=== PATIENT | female | born 1940 | race Caucasian/White ===

== ENCOUNTER 2025-06-01 09:48 | Emergency (ER) | payer MEDICARE, SELFPAY ==
--- OUTSIDE RECORDS SUMMARY | 2021-11-26 04:24 | XMS_ITS | Continuity of Care Document ---
Author Organization [facility] Address [address] [place] [address] Phone Care Team Providers Care Cat Breeder Name Role Phone Luis Jesus DO Unavailable Unavailable Allergies, Adverse Reactions, Alerts Substance Reaction Status Criticality heparin rx unk, taken off in hospital Active No Information Medications Medication Instructions Dosage Effective Dates (start - stop) Status Comments Levothyroxine Sodium 50 MCG Oral Tablet TAKE 1 TABLET BY MOUTH ONCE DAILY 30 MINUTES BEFORE FIRST MEAL OF THE DAY. DO NOT TAKE WITH OTHER MEDICATIONS. - Active Alendronate Sodium 35 MG Oral Tablet TAKE 1 TABLET BY MOUTH ONCE A WEEK IN THE MORNING AT LEAST 30 MINUTES BEFORE FIRST FOOD,BEVERAGE OR MEDICATION OF THE DAY - Active POT CHLORIDE [id number] Take 2 tablets by mouth twice daily - Active nitroglycerin 0.2 mg/hr transdermal 24 hour patch apply 1 patch by transdermal route every day remove at night for 10-12 hours 1.00 patch - Active Entresto 24 mg-26 mg tablet dose unknown, take 1 tablet by oral route 2 times every day - Active spironolactone 25 mg tablet take 1/2 tablet by oral route every day - Active metoprolol succinate ER 25 mg tablet,extended release 24 hr take 1 tablet by oral route every day 25 MG - Active atorvastatin 40 mg tablet TAKE 1 TABLET BY MOUTH ONE TIME A DAY FOR HIGH CHOLESTEROL - Active nitroglycerin 0.[address] 1 tablet by sublingual route at the 1st sign of attack; may repeat every 5 min until relief; if pain persists after 3 tablets in 15 min, prompt medical attention is recommended 0.4 MG - Active multivitamin tablet take 1 tablet by oral route every day with food - Active Colace 100 mg capsule take 1 Capsule by oral route 2 times every day 100 MG - Active COQ-10 (unknown strength) take 1 Tablet by Oral route every day Not Available - Active bumetanide 1 mg tablet take 2 tablet by oral route 2 times every day 2 MG - Active clopidogrel 75 mg tablet take 1 tablet by oral route every day 75 MG - Active aspirin 81 mg chewable tablet chew 1 tablet by oral route every day 81 MG - Active Procedures Procedure Date SUBSEQUENT HOSPITAL CARE SUBSEQUENT HOSPITAL CARE SUBSEQUENT HOSPITAL CARE INITIAL HOSPITAL CARE OFFICE/OUTPATIENT VISIT, EST OFFICE/OUTPATIENT VISIT, EST OFFICE/OUTPATIENT VISIT, EST OFFICE/OUTPATIENT VISIT, EST OFFICE/OUTPATIENT VISIT, EST OFFICE/OUTPATIENT VISIT, EST SUBSEQUENT HOSPITAL CARE SUBSEQUENT HOSPITAL CARE HOSPITAL DISCHARGE DAY INITIAL HOSPITAL CARE OFFICE/OUTPATIENT VISIT, EST PPPS, SUBSEQUENT VISIT OFFICE/OUTPATIENT VISIT, EST OFFICE/OUTPATIENT VISIT, EST INITIAL HOSPITAL CARE SUBSEQUENT HOSPITAL CARE HOSPITAL DISCHARGE DAY OFFICE/OUTPATIENT VISIT, EST PROLONGED SERVICE, OFFICE PROLONGED SERVICE, OFFICE INITIAL HOSPITAL CARE SUBSEQUENT HOSPITAL CARE SUBSEQUENT HOSPITAL CARE HOSPITAL DISCHARGE DAY SUBSEQUENT HOSPITAL CARE OFFICE/OUTPATIENT VISIT, EST OFFICE/OUTPATIENT VISIT, EST OFFICE/OUTPATIENT VISIT, EST OFFICE/OUTPATIENT VISIT, EST ADMINISTRATION INFLUENZA VACCINE 2017 FLU VACC PRSV FREE INC ANTIG PPPS, SUBSEQUENT VISIT OFFICE/OUTPATIENT VISIT, EST OFFICE/OUTPATIENT VISIT, EST OFFICE/OUTPATIENT VISIT, EST SUBSEQUENT HOSPITAL CARE HOSPITAL DISCHARGE DAY SUBSEQUENT HOSPITAL CARE SUBSEQUENT HOSPITAL CARE INITIAL HOSPITAL CARE OFFICE/OUTPATIENT VISIT, EST OFFICE/OUTPATIENT VISIT, EST OFFICE/OUTPATIENT VISIT, EST ROUTINE VENIPUNCTURE PPPS, SUBSEQUENT VISIT OFFICE/OUTPATIENT VISIT, EST EKG OFFICE/OUTPATIENT VISIT, EST ROUTINE VENIPUNCTURE OFFICE/OUTPATIENT VISIT, EST ROUTINE VENIPUNCTURE OFFICE/OUTPATIENT VISIT, EST OFFICE/OUTPATIENT VISIT, EST NURSING FAC DISCHARGE DAY NURSING FAC CARE, SUBSEQ NURSING FAC CARE, SUBSEQ ROUTINE VENIPUNCTURE OFFICE/OUTPATIENT VISIT, EST URINALYSIS, AUTO, W/O SCOPE PPPS, SUBSEQUENT VISIT OFFICE/OUTPATIENT VISIT, EST OFFICE/OUTPATIENT VISIT, EST ROUTINE VENIPUNCTURE Doc meds verified w/pt or re Sys BP > or = 140 Gibbons BP less 90 URINALYSIS, AUTO, W/O SCOPE OFFICE/OUTPATIENT VISIT, EST Doc meds verified w/pt or re Sys BP > or = 140 Gibbons BP less 90 OFFICE/OUTPATIENT VISIT, EST URINALYSIS NONAUTO W/O SCOPE OFFICE/OUTPATIENT VISIT, EST Flu imm no ord/admin doc wyatt OFFICE/OUTPATIENT VISIT, EST Med record copy per page URINALYSIS NONAUTO W/O SCOPE OFFICE/OUTPATIENT VISIT, EST PNEUMOCOCCAL VACCINE ADMINISTRATION PNEUMOCOCCAL VACCINE OFFICE/OUTPATIENT VISIT, EST Advance Directives Directive Yes / No Effective Date File Name No Information Encounters Encounter Description Practice Location Reason(s) For Visit Diagnoses Date Provider Providers Copied on Encounter [facility], [address] [place] [address] [address], [place], [place], [id number] , [place] tel:[phone] [facility] No Information 2 Ann Marie PINEDA. [address], [place], [place], [id number], [place]. tel:[phone] [facility], [address] [place] [address] [address], [place], [place], [address] , [place] tel: [phone] [facility] No Information 2 Van Kaba. [address], [place], [id number], [place]. tel:[phone] Referring Provider: Lluvia Araujo DO, [address] [place], [address]. tel:[phone] [facility], [address] [place] [address] [address], [place], [place], [address] , [place] tel:[phone] [facility] No Information 2 Anupam Licea. [address], [place], [id number], [place]. tel:[phone] Referring Provider: Anuja Love, [address] [place], [address]. tel:[phone] [facility], [address] [place] [address] [address], [place], [place], [address] , [place] tel:[phone] [facility] No Information 2 Milton Chavez. [address], [place], [id number], [place]. tel:[phone] Referring Provider: Kathy Rose, [address] [facility], [place], [address]. tel:[phone] [facility], [address] [place] [address] Road [address], [place], [place], [address] , [place] tel: [phone] [facility] No Information 2 Jesus DO E.. [address], [place], [place], [address], [place]. tel:[phone] OFFICE/OUTPA TIENT VISIT, [facility], [address] [place] [address] [address], [place], [place], [address] , [place] tel: [phone] [facility] Red eye (chief complaint) Subconjuncti marleni hemorrhage of right eye 2 Jesus DO E.. [address], [place], [place], [address], [place]. [phone] Referring Provider: Luis Gilmore, [address], [place], [address]. tel:[phone] [place] [address], [address] [place] [address] [address], [place], [place], [address] , [place] tel: [phone] [facility] No Information 1 Ann Marie ABURTO.. [address], [place], [place], [address], [place]. tel:[phone] [place] [address], [address] [place] [address] [address], [place], [place], [address] , [place] tel: [phone] [facility] No Information 1 Ann Marie ABURTO.. [address], [place], [place], [address], [place]. tel:[phone] OFFICE/OUTPA TIENT VISIT, [facility], [address] [place] [address] [address], [place], [place], [address] , [place] tel: [phone] [facility] No Information 1 Niki Rodriguez. [address], [place], [id number], [place]. tel:[phone] Referring Provider: Jennifer Prince, [facility] [address] [facility], [place], [address]. tel:[phone] OFFICE/OUTPA TIENT VISIT, [facility], [address] [place] [address] [address], [place], [place], [address] , [place] tel:[phone] [facility] 6 month follow up (chief complaint) Chronic obstructive pulmonary disease, unspecified COPD typeHyperlip idemia, unspecifiedC hronic systolic congestive heart failureOsteo penia of neck of left femurHypothy roidism, unspecified 1 Ann Marie PINEDA. [address] [facility], [address], [place], [place], [address], [place]. tel:[phone] Referring Provider: Luis Gilmore, [address] [facility] [address], [place], [address]. tel:[phone] OFFICE/OUTPA TIENT VISIT, [facility], [address] [place] [address] [address], [place], [place], [address] , [place] [phone] [facility] No Information 1 Niki Rodriguez. [address], [place], [address], [place]. tel:[phone] Referring Provider: Jennifer Prince, [address] [place], [address]. tel:[phone] OFFICE/OUTPA TIENT VISIT, [facility], [address] [place] [address] [address], [place], [place], [address] , [place] [phone] [facility] No Information 1 Niki Rodriguez. [address], [place], [id number], [place]. tel:[phone] Referring Provider: Jennifer Prince, [facility] [place], [address]. [phone] OFFICE/OUTPA TIENT VISIT, [facility], [address] [place] [address] [address], [place], [place], [address] , [place] tel:[phone] [facility] 6 months follow up (chief complaint) Osteopenia of neck of left femurHypothy roidism, unspecifiedI nsomnia, unspecifiedO steoarthriti s of right hip, unspecified osteoarthrit is typeChronic systolic congestive heart failure 1 Ann Marie PINEDA. [address], [place], [place], [address], [place]. [phone] Referring Provider: Luis Gilmore, [address], [place], [address]. tel:[phone] [facility], [address] [place] [address] [address], [place], [place], [address] , [place] tel:[phone] [facility] No Information 1 Van Kaba. [address], [place], [id number], [place]. tel:[phone] Referring Provider: Lluvia Araujo DO, [address] [facility], [place], [address]. [phone] [facility], [address] [place] [address] [address], [place], [place], [address] , [place] tel:[phone] [facility] No Information 1 Alphonse Lemus. [address], [place], [id number], [place]. tel:[phone] Referring Provider: Allan Cunha, [address] [place], [address]. tel:[phone] OFFICE/OUTPA TIENT VISIT, [facility], [address] [place] [address] [address], [place], [place], [address] , [place] tel:[phone] [facility] No Information 0 Niki Rodriguez. [address], [place], [id number], [place]. tel:[phone] Referring Provider: Jennifer Prince, [address] [facility], [place], [address]. tel:[phone] [facility], [address] [place] [address] B, [place], [address] , [place] tel:[phone] [facility] 6 months follow up (chief complaint)Ref ill Meds (chief complaint) Insomnia, unspecifiedH ypothyroidis m, unspecifiedC hronic systolic congestive heart failureChron ic obstructive pulmonary disease, unspecified COPD typeOsteoart hritis of right hip, unspecified osteoarthrit is typeHyperlip idemia, unspecifiedM edicare annual wellness visit, subsequentNi cotine dependence, cigarettes, uncomplicate d 0 Ann Marie FINNEGAN [address], [facility] A, [place], [place], [address], [place]. tel:[phone] Referring Provider: Luis Gilmore, [address] [facility] [address], [place], [address]. tel:[phone] [facility], [address] [place] [address] B, [place], [address] , [place] tel:[phone] [facility] No Information 0 Ann Marie FINNEGAN [address] [facility], [facility] A, [place], [place], [address], [place]. tel:[phone] [facility], [address] [place] [address] [address], [place], [place], [address] , [place] tel:[phone] [facility] No Information 0 Orlando Macias. [address], [place], [address], [place]. tel:[phone] OFFICE/OUTPA TIENT VISIT, EST [facility], [address] [place] [address] B, [place], [place], [address] , [place] tel:[phone] [facility] Insomnia (chief complaint)rig ht hip pain (chief complaint)Sys tolic Heart Failure (chief complaint) Insomnia, unspecifiedC hronic systolic heart failureOsteo arthritis of right hip, unspecified osteoarthrit is type 0 Ann Marie PINEDA. [address], [place], [place], [address], [place]. tel:[phone] Referring Provider: Luis Gilmore, [address], [place], [address]. tel:[phone] OFFICE/OUTPA TIENT VISIT, [facility], [address] [facility] [address], [place], [place], [address] , [place] tel:[phone] [facility] Follow Up of Hypothyroidis m (chief complaint)Hos pitalization (chief complaint)Fol low Up of Insomnia (chief complaint)Fol low Up of Hyperlipidemi a (chief complaint)Fol low Up of musculoskelet al pain (chief complaint) Osteoarthrit is of right hip, unspecified osteoarthrit is typeInsomnia , unspecifiedH yperlipidemi a, unspecified hyperlipidem ia typeChronic systolic congestive heart failureChron ic obstructive pulmonary disease, unspecified COPD typeScreenin g for breast cancer 9 Ann Marie PINEDA. [address], [place], [place], [address], [place]. tel:[phone] Referring Provider: Nicole Massey, [address] [place], [address]. tel:[phone] [facility], [address] [place] [address] [address], [place], [place], [address] , [place] tel:[phone] [facility] No Information 9 John Zamora. [address], [place], [id number], [place]. tel:[phone] Referring Provider: Sera Lopez, [address] [facility], [place], [address]. tel:[phone] [facility], [address] [place] [address] [address], [place], [place], [address] , [place] tel: [phone] [facility] No Information 9 Dominik Danielle. [address], [place], [id number], [place]. tel:[phone] Referring Provider: Lolis Lehman MD, [address] [place], [address]. tel:[phone] OFFICE/OUTPA TIENT VISIT, [facility], [address] [place] [address] [address], [place], [place], [address] , [place] tel: [phone] [facility] No Information 9 Niki Rodriguez. [address], [place], [address], [place]. [phone] Referring Provider: Jennifer Prince, [facility] [place], [address]. tel:[phone] [facility], [address] [place] [address] [address] , [place], [place], [address] , [place] tel: [phone] [facility] No Information 9 Dominik Danielle. [address], [place], [id number], [place]. tel:[phone] Referring Provider: Lolis Lehman MD, [facility] [place], [address]. tel:[phone] [facility], [address] [place] [address] [address] , [place], [place], [address] , [place] tel: [phone] [facility] No Information No Information SUBSEQUENT [facility], [address] [place] [address] B, [place], [place], [address] , [place] tel: [phone] [facility] No Information 9 Alphonse Lemus. [address] [place], [address], [place]. tel:[phone] Referring Provider: Allan Cunha, [address] [facility], [place], [address]. tel:[phone] OFFICE/OUTPA TIENT VISIT, [facility], [address] [place] [address] [address], [place], [place], [address] , [place] tel:[phone] [facility] musculoskelet al pain (chief complaint) History of recent fallAcute right hip pain 9 Ann Marie NOEL E.. [address] [facility], [address], [place], [place], [address], [place]. tel:[phone] Referring Provider: Nicole Massey, [address] [place], [address]. tel:[phone] OFFICE/OUTPA TIENT VISIT, [facility], [address] [place] [address] [address], [place], [place], [address] , [place] tel:[phone] [facility] Thyroid problems (chief complaint)Hyp erlipidemia (chief complaint)Ins omnia (chief complaint)Hyp ertension (chief complaint)Errol otine dependance (chief complaint) Hypothyroidi sm, unspecifiedN icotine dependence, cigarettes, uncomplicate dInsomnia, unspecifiedH yperlipidemi a, unspecified hyperlipidem ia typeIschemic heart disease 9 Ann Marie PINEDA. [address], [place], [place], [address], [place]. tel:[phone] Referring Provider: Luis Gilmore, [address], [place], [address]. tel:[phone] OFFICE/OUTPA TIENT VISIT, [facility], [address] [place] [address] [address], [place], [place], [address] , [place] tel:[phone] [facility] Establish Care (chief complaint)Thy roid problems (chief complaint)Hyp erlipidemia (chief complaint)Hyp ertension (chief complaint)Ins omnia (chief complaint) Hypothyroidi sm, unspecifiedH yperlipidemi a, unspecifiedI nsomnia, unspecifiedE ssential (primary) hypertension Atherosclero tic heart disease of [place] coronary artery without angina pectorisNico luke dependence, other tobacco product, uncomplicate d 9 Ann Marie PINEDA. [address], [place], [place], [address], [place]. tel:[phone] Referring Provider: Luis Gilmore, [address], [place], [address]. tel:[phone] OFFICE/OUTPA TIENT VISIT, [facility], [address] [place] [address] [address], [place], [place], [address] , [place] tel:[phone] [facility] chronic conditions (chief complaint) Essential (primary) hypertension Hyperlipidem ia, unspecifiedH ypothyroidis m, unspecifiedI nsomnia, unspecifiedN icotine dependence, other tobacco product, uncomplicate dAtheroscler otic heart disease of [place] coronary artery without angina pectoris 9 Shilpa Rivera. [address] [place] [address], [address]. tel:[phone] Referring Provider: Nicole Massey, [address] [place] [address], [address]. tel:[phone] [facility], [address] [place] [address] B, [place], [place], [address] , tel:[phone] [facility] medicare preventive (chief complaint)chr onic conditions (chief complaint)dec lines breast exam (chief complaint) Essential (primary) hypertension Other specified disorders of bone density and structure, unspecified siteInsomnia , unspecifiedE ncounter for general adult medical examination without abnormal findings 8 Shilpa Rivera. [address] [place] [address], [address]. tel:[phone] Referring Provider: Nicole Massey [address] [place] [address], [address]. tel:[phone] OFFICE/OUTPA TIENT VISIT, [facility], [address] [place] [address] [address], [place], [place], [address] , tel:[phone] [facility] chronic conditions (chief complaint) Essential (primary) hypertension Hyperlipidem ia, unspecified 8 Shilpa Rivera. [address] [place] [address], [address]. tel:[phone] Referring Provider: Nicole Massey, [address] [place] [address], [address]. tel:[phone] OFFICE/OUTPA TIENT VISIT, [facility], [address] [place] [address], [place], [place], [address] , tel:[phone] [facility] chronic conditions (chief complaint) Essential (primary) hypertension Acute systolic (congestive) heart failureNicot ine dependence, other tobacco product, uncomplicate dHyperlipide tiny, unspecified 8 Shilpa Rivera. [address] [place] [address], [address]. tel:[phone] Referring Provider: Nicole Massey, [address] [place] [address], [address]. tel:[phone] OFFICE/OUTPA TIENT VISIT, [facility], [address] [place] [address], [place], [place], [address] , [place] tel:[phone] [facility] Follow Up of hospitalizati on (chief complaint) Acute systolic (congestive) heart failureCOPD exacerbation 8 Shilpa RiveraVee [address] [place] [address], [address]. tel:[phone] Referring Provider: Nicole Massey, [address] [place] [address], [address]. tel:[phone] [facility], [address] [place] [address] B, [place], [place], [address] , [place] tel: [phone] [facility] No Information [address] [facility], [address] [place] [address] B, [place], [place], [address] , [place] tel:[phone] [facility] No Information [address] [facility], [address] [place] [address] B, [place], [place], [address] , [place] tel:[phone] [facility] No Information 8 No Information OFFICE/OUTPA TIENT VISIT, [employer] [facility], [address] [place] [address], [place], [place], [address] , tel:[phone] [facility] chronic conditions (chief complaint)pepe bocanegra (chief complaint) Essential (primary) hypertension Hypothyroidi sm, unspecifiedO ther specified peripheral vascular diseasesHype rlipidemia, unspecified 8 Shilpa Rivera. [address] [place] [address], [address]. tel:[phone] Referring Provider: Nicole Massey, [address] [place] [address], [address]. tel:[phone] OFFICE/OUTPA TIENT VISIT, [employer] [facility], [address] [place] [address], [place], [place], [address] , [phone] [facility] chronic conditions (chief complaint) Essential (primary) hypertension Acute systolic (congestive) heart failureNicot ine dependence, other tobacco product, uncomplicate dHypothyroid ism, unspecified 7 Shilpa Rivera. [address] [place] [address], [address]. tel:[phone] Referring Provider: Nicole Massey, [address] [place] [address], [address]. tel:[phone] OFFICE/OUTPA TIENT VISIT, [facility], [address] [place] [address], [place], [place], [address] , [place] tel:[phone] [facility] Discuss DEXA results (chief complaint) Other specified disorders of bone density and structure, unspecified siteNicotine dependence, cigarettes, uncomplicate d 7 Shilpa Rivera. [address] [place] [address], [address]. tel:[phone] Referring Provider: Nicole Massey, [address] [place] [address], [address]. tel:[phone] [facility], [address] [place] [address], [id number] , tel:[phone] [facility] medicare preventive (chief complaint)chr onic conditions (chief complaint)req uests breast exam today. (chief complaint) Essential (primary) hypertension AnemiaEncoun ter for general adult medical examination without abnormal findingsOthe r specified disorders of bone density and structure, unspecified siteUnspecif ied diastolic (congestive) heart failure 7 Shilpa Rivera. [address] [place] [address], [address]. tel:[phone] Referring Provider: Nicole Massey, [address] [place] [address], [address]. tel:[phone] OFFICE/OUTPA TIENT VISIT, [facility], [address] [place] [address], [id number] , tel:[phone] [facility] Cough (chief complaint)mem ory problems (chief complaint) Cough due to ANGIE inhibitorAdv erse effect of angiotensin- converting-e nzyme inhibitors, initial encounterCog nitive deficits 7 Shilpa De Los Santos [address] [place] [address], [address]. tel:[phone] Referring Provider: Nicole Massey, [address] [place] [address], [address]. tel:[phone] OFFICE/OUTPA TIENT VISIT, [employer] [facility] [employer], [address] [place] [address], [id number] , tel:[phone] [facility] Follow Up of Anxiety (chief complaint)sta ple (chief complaint)Fol low Up of CHF (chief complaint)dis cuss thyroid nodules per CT (chief complaint) Thyroid noduleCardia c arrhythmia, unspecifiedC erebrovascul ar accident (CVA) due to thrombosis of right middle cerebral arteryGAD (generalized anxiety disorder) 7 Shilpa De Los Santos [address] [place] [address], [address]. tel:[phone] Referring Provider: Nicole Massey [address] [place] [address], [address]. tel:[phone] OFFICE/OUTPA TIENT VISIT, [employer] [facility], [address] [place] [address] [address], [place], [place], [id number] , tel:[phone] [facility] Follow Up of CHF (chief complaint)2 mika left behind knee. (chief complaint)anx iety (chief complaint) Cerebrovascu lar accident (CVA) due to thrombosis of right middle cerebral arteryAcute systolic congestive heart failureEncou nter for staple removal Shilpa Rivera. [address] [place] [address], [address]. tel:[phone] Referring Provider: Nicole Massey, [address] [place] [address], [address]. tel:[phone] OFFICE/OUTPA TIENT VISIT, [employer] [facility], [address] [place] [address] [address], [place], [place], [id number] , [place] tel:[phone] [facility] Bloodshot eye (chief complaint) Eye hemorrhage, right No Information Referring Provider: Nicole Massey, [address] [place] [address], [address]. tel:[phone] OFFICE/OUTPA TIENT VISIT, [employer] [facility], [address] [place] [address] [address], [place], [place], [id number] , tel:[phone] [facility] Follow Up of hospital/SNF stay (chief complaint) Iron deficiency anemia due to chronic blood lossUrinary tract infection, site unspecifiedA cute systolic congestive heart failureCoron kiran artery disease involving [place] heart without angina pectoris, unspecified vessel or lesion typeRight-si ded carotid artery diseaseCereb rovascular accident (CVA) due to thrombosis of right middle cerebral arteryTobacc o dependence in remissionPle ural effusion due to CHF (congestive heart failure) 6 Shilpa Rivera. [address] [place] [address], [address]. tel:[phone] Referring Provider: Nicole Massey [address] [place] [address], [address]. tel:[phone] NURSING FAC DISCHARGE [facility], [address] [place] [address] [address], [place], [place], [id number] , [place] tel: [phone] [facility] Skilled No Information 6 Rishabh Brock. [address], [place], [place], [id number], [place]. tel:[phone] Referring Provider: Vinod Love, [facility] [address] [address], [place], [address]. tel:[phone] NURSING FAC CARE, [facility], [address] [place] [address] B, [place], [place], [id number] , tel: [phone] [facility] Sk[facility] No Information 6 Rishabh Brock. [facility], [place], [place], [id number], [place]. tel:[phone] Referring Provider: Vinod Love, [facility], [place], [address]. tel:[phone] NURSING FAC CARE, [facility], [address] [place] [address] [address], [place], [place], [id number] , [place] tel: [phone] [facility] No Information 6 Rishabh Brock. [facility], [place], [place], [id number], [place]. tel:[phone] Referring Provider: Vinod Love, [facility], [place], [address]. tel:[phone] OFFICE/OUTPA TIENT VISIT, 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 [address] [place] [address], [address]. tel:[phone] Referring Provider: Nicole Massey, [address] [place] [address], [address]. tel:[phone] [facility], [address] [place] [address], [id number] , tel:[phone] [facility] Medicare preventive (chief complaint) Encntr for general adult medical exam w/o abnormal findingsOthe r hyperlipidem iaEssential (primary) hypertension Hypothyroidi sm, unspecified 6 Shilpa Nicole. [address] [place] [address], [address]. tel:[phone] Referring Provider: Nicole Massey, [address] [place] [address], [address]. tel:[phone] OFFICE/OUTPA TIENT VISIT, [facility] [employer] [facility], [address] [place] [address], [id number] , tel:[phone] [facility] chronic conditions (chief complaint) Essential (primary) hypertension Elevated hematocritDr ug-induced hyperkalemia 5 Shilpa Nicole. [address] [place] [address], [address]. tel:[phone] Referring Provider: Nicole Massey, [address] [place] [address], [address]. tel:[phone] OFFICE/OUTPA TIENT VISIT, [employer] [facility], [address] [place] [address], [id number] , tel:[phone] [facility] chronic conditions (chief complaint)Laureano h (chief complaint) Unspecified essential hypertension Tobacco AbuseHypokal emiaUnspecif ied hypothyroidi smHypertensi on, BenignYeast dermatitis - 5 Shilpa Nicole. [address] [place] [address], [address]. tel:[phone] Referring Provider: Nicole Massey, [address] [place] [address], [address]. tel:[phone] OFFICE/OUTPA TIENT VISIT, [employer] [facility], [address] [place] [address], [place], [place], [id number] , [place] tel:[phone] [facility] chronic conditions (chief complaint)Pre ventive exam (chief complaint) Unspecified hypothyroidi smBenign essential hypertension Other and unspecified hyperlipidem iaRoutine Medical Exam 4 No Information OFFICE/OUTPA TIENT VISIT, [facility] [employer] [facility], [address] [place] [address], [place], [place], [id number] , [place] [phone] [facility] chronic conditions (chief complaint) Hypertension , BenignOther and unspecified hyperlipidem iaPolycythem ia secondary to smokingCAD, UnspecifiedH ypokalemia Dec- 4 Shilpa Rivera. [address] [place] [address], [address]. tel:[phone] Referring Provider: Nicole Massey, [address] [place] [address], [address]. tel:[phone] [employer] [facility], [address] [place] [address], [place], [place], [id number] , [phone] [facility] Hypertension , Benign Dec-0 4 Massey Nicole. [address] [place] [address], [address]. tel:[phone] OFFICE/OUTPA TIENT VISIT, [facility] [employer] [facility], [address] [place] [address] [address], [place], [place], [id number] , [place] tel:[phone] [facility] chronic conditions (chief complaint)pre ventive exam (chief complaint) Hypertension , BenignPeriph eral vascular disease, unspecifiedO ther and unspecified hyperlipidem iaDisorder of bone and cartilage, unspecifiedH ypothyroidis mRoutine Medical ExamPolycyth emia secondary to smokingTobac co Abuse 3 Shilpa Rivera. [facility] [place], [address]. tel:[phone] Referring Provider: Nicole Massey, [address] [place] [address], [address]. tel:[phone] OFFICE/OUTPA TIENT VISIT, [employer] [facility], [address] [place] [address], [place], [place], [id number] , tel:[phone] [facility] hypertension (follow up) (chief complaint) Hypertension , BenignHypoth yroidismOthe r and unspecified hyperlipidem iaPeripheral vascular disease, unspecified 3 Shilpa Rivera. [address] [place] [address], [address]. tel:[phone] Referring Provider: Nicole Massey, [address] [place] [address], [address]. tel:[phone] [facility], [address] [place] [address], [place], [place], [id number] , [place] tel:[phone] [facility] No Information 3 Shilpa Rivera. [address] [place] [address], [address]. tel:[phone] Referring Provider: Nicole Massey, [address] [place] [address], [address]. tel:[phone] OFFICE/OUTPA TIENT VISIT, [facility] [employer] [facility], [address] [place] [address], [id number] , [place] tel:[phone] [facility] preventive exam (chief complaint) Hypertension , BenignOther and unspecified hyperlipidem iaDisorder of bone and cartilage, unspecifiedH eart ThrombusPneu monia Vaccine 2 Shilpa Rivera. [address] [place] [address], [address]. tel:[phone] Referring Provider: Nicole Massey, [address] [place] [address], [address]. tel:[phone] [employer] [facility], [address] [place] [address] [place], [id number] , [place] tel:[phone] [facility] Hypertension , BenignOther and unspecified hyperlipidem iaCAD, UnspecifiedH eart ThrombusDiso rder of bone and cartilage, unspecifiedP eripheral vascular disease, unspecified 2 Shilpa Rivera. [address] [place] [address], [address]. tel:[phone] OFFICE/OUTPA TIENT VISIT, [facility], [address] [facility] [address], [place], [place], [id number] , [place] tel:[phone] [facility] No Information 2 Shilpa Rivera. [address] [place], [address]. tel:[phone] Referring Provider: Nicole Massey, [address] [place] [address], [address]. tel:[phone] Family History Family Member Type Diagnosis Age At Onset Father Problem (finding) Father Problem (finding) Cancer (Cause Of ) Immunizations Vaccine Date Status Comments Influenza, high dose, injectable, split virus, preservative free, Fluzone High-Dose administered Source: New Immuniz ation Record Pneumo (2 yrs or older)(PPV) administered Source: New Immunization Record Payers Payer name Insurance type Covered constitution party ID Authoriza tion(s) Humana Choice And Gold Choice 16 [id number] [employer] 16 [id number] Social History Type Description Quantity Date Captured Comments Alcohol Use Details Unknown Caffeine Use Details Unknown Tobacco Use Status Smoking Status No Information Sex Female Chief Complaint And Reason For Visit No Information Reason For Referral Reason For Referral No Information Plan Of Treatment Date Type Action Status Goal Echocardiogram. Due on due Goal Pap liquid based for cytology. Due on due Goal Digital Mammogra m Screening. Due on due Goal Medroxyprogester one inj. Due on due Goal Zoster vaccine (1st). Due on due Goal DEXA Scan. Due on due Goal Td vaccine. Due on due Goal LVEF assessment. Due on due Goal N-terminal pro-B -type natriuretic peptide. Due on due Goal Spirometry. Due on due Goal Fasting glucose. Due on due Goal VR12 - screening tool. Due on due Goal AIR BRAKES INSPECTOR exam. Due on due Goal Cognitive assessment. Due on due Goal URINALYSIS NONAU TO W/O SCOPE. Due on due Goal Pneumococcal vaccine. Due on due Goal Unhealthy drug u se screening. Due on due Goal Depression screening. Due on due Goal BMP. Due on due Goal Zoster vaccine. Due on due Goal Cytology report of Cervical and vaginal smear or scraping Cyto stain. Due on due Goal H&P. Due on due Goal VR12 - screening tool. Due on due Goal Echocardiogram. Due on due Goal Cytology report of Cervical and vaginal smear or scraping Cyto stain. Due on due Goal Td vaccine. Due on due Goal H&P. Due on due Goal Pneumococcal vaccine. Due on due Goal Cognitive assessment. Due on due Goal DEXA Scan. Due on 3 due Goal Digital Mammogra m Screening. Due on due Goal Medroxyprogester one inj. Due on due Goal AIR BRAKES INSPECTOR exam. Due on due Goal Zoster vaccine (). Due on due Goal URINALYSIS NONAU TO W/O SCOPE. Due on due Goal Pap liquid based for cytology. Due on due Goal BMP. Due on due Goal Depression screening. Due on due Goal Spirometry. Due on due Goal LVEF assessment. Due on due Goal N-terminal pro-B -type natriuretic peptide. Due on due Goal Fasting glucose. Due on due Goal Lipid Panel. Due on 022 due Goal Echocardiogram. Due on due Goal BMP. Due on due Goal DEXA Scan. Due on 3 due Goal Medroxyprogester one inj. Due on due Goal AIR BRAKES INSPECTOR exam. Due on due Goal Pap liquid based for cytology. Due on due Goal Cytology report of Cervical and vaginal smear or scraping Cyto stain. Due on due Goal Zoster vaccine (1st). Due on due Goal Pneumococcal vaccine. Due on due Goal Digital Mammogra m Screening. Due on due Goal H&P. Due on due Goal Td vaccine. Due on due Goal Cognitive assessment. Due on due Goal URINALYSIS NONAU TO W/O SCOPE. Due on due Goal Depression screening. Due on due Goal LVEF assessment. Due on due Goal N-terminal pro-B -type natriuretic peptide. Due on due Goal Spirometry. Due on due Goal Fasting glucose. Due on due Goal VR12 - screening tool. Due on due Goal Lipid Panel. Due on due Goal Echocardiogram. Due on due Goal Fasting glucose. Due on due Goal Spirometry. Due on due Goal LVEF assessment. Due on due Goal Pneumococcal vaccine. Due on due Goal Cytology report of Cervical and vaginal smear or scraping Cyto stain. Due on due Goal URINALYSIS NONAU TO W/O SCOPE. Due on due Goal Digital Mammogra m Screening. Due on due Goal H&P. Due on due Goal VR12 - screening tool. Due on due Goal N-terminal pro-B -type natriuretic peptide. Due on due Goal Medroxyprogester one inj. Due on due Goal Cognitive assessment. Due on due Goal Zoster vaccine (1st). Due on due Goal Pap liquid based for cytology. Due on due Goal Td vaccine. Due on due Goal AIR BRAKES INSPECTOR exam. Due on due Goal BMP. Due on due Goal Depression screening. Due on due Goal Lipid Panel. Due on due Goal Fasting glucose. Due on due Goal Spirometry. Due on due Goal VR12 - screening tool. Due on due Goal N-terminal pro-B -type natriuretic peptide. Due on due Goal LVEF assessment. Due on due Goal Echocardiogram. Due on due Goal Zoster vaccine. Due on due Goal H&P. Due on due Goal Pap liquid based for cytology. Due on due Goal Medroxyprogester one inj. Due on due Goal URINALYSIS NONAU TO W/O SCOPE. Due on due Goal Depression screening. Due on due Goal Lipid Panel. Due on due Goal Digital Mammogra m Screening. Due on due Goal AIR BRAKES INSPECTOR exam. Due on due Goal Cytology report of Cervical and vaginal smear or scraping Cyto stain. Due on due Goal Pneumococcal vaccine. Due on due Goal Td vaccine. Due on due Goal Zoster vaccine (1st). Due on due Goal Cognitive assessment. Due on due Goal DEXA Scan. Due on 9 due Goal BMP. Due on due Goal Td vaccine. Due on due Goal Cytology report of Cervical and vaginal smear or scraping Cyto stain. Due on due Goal Zoster vaccine. Due on due Goal H&P. Due on due Goal DEXA Scan. Due on 9 due Goal Medroxyprogester one inj. Due on due Goal Digital Mammogra m Screening. Due on due Goal URINALYSIS NONAU TO W/O SCOPE. Due on due Goal Depression screening. Due on due Goal BMP. Due on due Goal Lipid Panel. Due on due Goal Cognitive assessment. Due on due Goal AIR BRAKES INSPECTOR exam. Due on due Goal Pap liquid based for cytology. Due on due Goal Echocardiogram. Due on due Goal Spirometry. Due on due Goal Fasting glucose. Due on due Goal LVEF assessment. Due on due Goal VR12 - screening tool. Due on due Goal N-terminal pro-B -type natriuretic peptide. Due on due Goal Pneumococcal vaccine. Due on due Goal Zoster vaccine (). Due on due Goal VR12 - screening tool. Due on due Goal LVEF assessment. Due on due Goal N-terminal pro-B -type natriuretic peptide. Due on due Goal Echocardiogram. Due on due Goal Cytology report of Cervical and vaginal smear or scraping Cyto stain. Due on due Goal Pneumococcal vaccine. Due on due Goal Zoster vaccine. Due on due Goal Fasting glucose. Due on due Goal Spirometry. Due on due Goal Digital Mammogra m Screening. Due on due Goal URINALYSIS NONAU TO W/O SCOPE. Due on due Goal DEXA Scan. Due on due Goal Pap liquid based for cytology. Due on due Goal H&P. Due on due Goal Medroxyprogester one inj. Due on due Goal Zoster vaccine (1st). Due on due Goal AIR BRAKES INSPECTOR exam. Due on due Goal Cognitive assessment. Due on due Goal Td vaccine. Due on due Goal BMP. Due on due Goal Depression screening. Due on due Goal Lipid Panel. Due on due Goal Lipid Panel. Due on due Goal Depression screening. Due on due Goal BMP. Due on due Goal Zoster vaccine (1st). Due on due Goal Zoster vaccine. Due on due Goal Cognitive assessment. Due on due Goal Td vaccine. Due on 19 due Goal H&P. Due on due Goal Pap liquid based for cytology. Due on due Goal DEXA Scan. Due on due Goal URINALYSIS NONAU TO W/O SCOPE. Due on due Goal AIR BRAKES INSPECTOR exam. Due on due Goal Digital Mammogra m Screening. Due on due Goal SCREENINGMAMMOGR APHYDIGITAL. Due on due Goal Cytology report of Cervical and vaginal smear or scraping Cyto stain. Due on due Goal Medroxyprogester one inj. Due on due Goal Pneumococcal vaccine. Due on due Goal Fasting glucose. Due on due Goal Spirometry. Due on 19 due Goal VR12 - screening tool. Due on due Goal N-terminal pro-B -type natriuretic peptide. Due on due Goal LVEF assessment. Due on due Goal Echocardiogram. Due on due Goal VR12 - screening tool. Due on due Goal Echocardiogram. Due on due Goal SCREENINGMAMMOGR APHYDIGITAL. Due on due Goal Digital Mammogra m Screening. Due on due Goal DEXA Scan. Due on 9 due Goal Pneumococcal vaccine. Due on due Goal Spirometry. Due on 19 due Goal Fasting glucose. Due on due Goal LVEF assessment. Due on due Goal Pap liquid based for cytology. Due on due Goal Cytology report of Cervical and vaginal smear or scraping Cyto stain. Due on due Goal URINALYSIS NONAU TO W/O SCOPE. Due on due Goal Cognitive assessment. Due on due Goal BMP. Due on due Goal Depression screening. Due on due Goal ECG. Due on due Goal Lipid Panel. Due on due Goal H&P. Due on due Goal Zoster vaccine. Due on due Goal AIR BRAKES INSPECTOR exam. Due on due Goal Td vaccine. Due on 19 due Goal Medroxyprogester one inj. Due on due Goal Pneumococcal vaccine. Due on due Goal Lipid Panel. Due on due Goal Zoster vaccine. Due on due Goal Td vaccine. Due on 19 due Goal Pap liquid based for cytology. Due on due Goal Cytology report of Cervical and vaginal smear or scraping Cyto stain. Due on due Goal URINALYSIS NONAU TO W/O SCOPE. Due on due Goal Medroxyprogester one inj. Due on due Goal Cognitive assessment. Due on due Goal BMP. Due on due Goal Fasting glucose. Due on due Goal Spirometry. Due on 19 due Goal LVEF assessment. Due on due Goal VR12 - screening tool. Due on due Goal Echocardiogram. Due on due Goal Digital Mammogra m Screening. Due on due Goal SCREENINGMAMMOGR APHYDIGITAL. Due on due Goal DEXA Scan. Due on 9 due Goal H&P. Due on due Goal AIR BRAKES INSPECTOR exam. Due on due Goal Depression screening. Due on due Goal ECG. Due on due Goal Cognitive assessment. Due on due Goal Medroxyprogester one inj. Due on due Goal URINALYSIS NONAU TO W/O SCOPE. Due on due Goal Cytology report of Cervical and vaginal smear or scraping Cyto stain. Due on due Goal Pap liquid based for cytology. Due on due Goal Td vaccine. Due on 19 due Goal Zoster vaccine. Due on due Goal Pneumococcal vaccine. Due on due Goal DEXA Scan. Due on 9 due Goal SCREENINGMAMMOGR APHYDIGITAL. Due on due Goal Digital Mammogra m Screening. Due on due Goal AIR BRAKES INSPECTOR exam. Due on due Goal Fasting glucose. Due on due Goal Spirometry. Due on 19 due Goal LVEF assessment. Due on due Goal VR12 - screening tool. Due on due Goal Echocardiogram. Due on due Goal H&P. Due on due Goal Depression screening. Due on due Goal BMP. Due on due Goal ECG. Due on due Goal Lipid Panel. Due on 020 due Goal Medroxyprogester one inj. Due on due Goal Depression screening. Due on due Goal BMP. Due on due Goal ECG. Due on due Goal Lipid Panel. Due on 019 due Goal URINALYSIS NONAU TO W/O SCOPE. Due on due Goal Pap liquid based for cytology. Due on due Goal Td vaccine. Due on 18 due Goal Fasting glucose. Due on due Goal Spirometry. Due on 18 due Goal LVEF assessment. Due on due Goal VR12 - screening tool. Due on due Goal Echocardiogram. Due on due Goal Pneumococcal vaccine. Due on due Goal Cytology report of Cervical and vaginal smear or scraping Cyto stain. Due on due Goal Cognitive assessment. Due on due Goal Zoster vaccine. Due on due Goal H&P. Due on due Goal AIR BRAKES INSPECTOR exam. Due on due Goal Digital Mammogra m Screening. Due on due Goal SCREENINGMAMMOGR APHYDIGITAL. Due on due Goal DEXA Scan. Due on 9 due Goal Cognitive assessment. Due on due Goal Depression screening. Due on due Goal BMP. Due on due Goal ECG. Due on due Goal Lipid Panel. Due on 019 due Goal AIR BRAKES INSPECTOR exam. Due on due Goal Fasting glucose. Due on due Goal Spirometry. Due on 18 due Goal LVEF assessment. Due on due Goal VR12 - screening tool. Due on due Goal Echocardiogram. Due on due Goal Cytology report of Cervical and vaginal smear or scraping Cyto stain. Due on due Goal H&P. Due on due Goal Digital Mammogra m Screening. Due on due Goal DEXA Scan. Due on 9 due Goal Medroxyprogester one inj. Due on due Goal Pap liquid based for cytology. Due on due Goal URINALYSIS NONAU TO W/O SCOPE. Due on due Goal SCREENINGMAMMOGR APHYDIGITAL. Due on due Goal Zoster vaccine. Due on due Goal Pneumococcal vaccine. Due on due Goal Td vaccine. Due on 18 due Goal Digital Mammogra m Screening. Due on due Goal Pap liquid based for cytology. Due on due Goal AIR BRAKES INSPECTOR exam. Due on due Goal SCREENINGMAMMOGR APHYDIGITAL. Due on due Goal Pneumococcal vaccine. Due on due Goal URINALYSIS NONAU TO W/O SCOPE. Due on due Goal Cognitive assessment. Due on due Goal Td vaccine. Due on 18 due Goal Zoster vaccine. Due on due Goal BMP. Due on due Goal Depression screening. Due on due Goal ECG. Due on due Goal Lipid Panel. Due on 019 due Goal Cytology report of Cervical and vaginal smear or scraping Cyto stain. Due on due Goal Fasting glucose. Due on due Goal Spirometry. Due on 18 due Goal LVEF assessment. Due on due Goal VR12 - screening tool. Due on due Goal Echocardiogram. Due on due Goal H&P. Due on due Goal DEXA Scan. Due on 9 due Goal Medroxyprogester one inj. Due on due Goal Spirometry. Due on 18 due Goal Digital Mammogra m Screening. Due on due Goal Cytology report of Cervical and vaginal smear or scraping Cyto stain. Due on due Goal Pneumococcal vaccine. Due on due Goal Zoster vaccine. Due on due Goal SCREENINGMAMMOGR APHYDIGITAL. Due on due Goal URINALYSIS NONAU TO W/O SCOPE. Due on due Goal Cognitive assessment. Due on due Goal BMP. Due on due Goal Depression screening. Due on due Goal ECG. Due on due Goal Lipid Panel. Due on 019 due Goal VR12 - screening tool. Due on due Goal Echocardiogram. Due on due Goal Pap liquid based for cytology. Due on due Goal AIR BRAKES INSPECTOR exam. Due on due Goal Fasting glucose. Due on due Goal H&P. Due on due Goal LVEF assessment. Due on due Goal Medroxyprogester one inj. Due on due Goal Td vaccine. Due on 18 due Goal DEXA Scan. Due on 9 due Goal Medroxyprogester one inj. Due on due Goal Digital Mammogra m Screening. Due on due Goal Pneumococcal vaccine. Due on due Goal SCREENINGMAMMOGR APHYDIGITAL. Due on due Goal Cognitive assessment. Due on due Goal URINALYSIS NONAU TO W/O SCOPE. Due on due Goal Zoster vaccine. Due on due Goal BMP. Due on due Goal Echocardiogram. Due on due Goal Fasting glucose. Due on due Goal VR12 - screening tool. Due on due Goal LVEF assessment. Due on due Goal H&P. Due on due Goal AIR BRAKES INSPECTOR exam. Due on due Goal Td vaccine. Due on 18 due Goal Pap liquid based for cytology. Due on due Goal Cytology report of Cervical and vaginal smear or scraping Cyto stain. Due on due Goal DEXA Scan. Due on 9 due Goal Depression screening. Due on due Goal ECG. Due on due Goal Lipid Panel. Due on 018 due Goal Zoster vaccine. Due on due Goal Depression screening. Due on due Goal BMP. Due on due Goal ECG. Due on due Goal Lipid Panel. Due on 018 due Goal Td vaccine. Due on 17 due Goal H&P. Due on due Goal Fasting glucose. Due on due Goal Echocardiogram. Due on due Goal URINALYSIS NONAU TO W/O SCOPE. Due on due Goal LVEF assessment. Due on due Goal VR12 - screening tool. Due on due Goal Cognitive assessment. Due on due Goal Pap liquid based for cytology. Due on due Goal SCREENINGMAMMOGR APHYDIGITAL. Due on due Goal AIR BRAKES INSPECTOR exam. Due on due Goal Digital Mammogra m Screening. Due on due Goal Pneumococcal vaccine. Due on due Goal Cytology report of Cervical and vaginal smear or scraping Cyto stain. Due on due Goal DEXA Scan. Due on 9 due Goal Medroxyprogester one inj. Due on due Goal Td vaccine. Due on 17 due Goal Medroxyprogester one inj. Due on due Goal Zoster vaccine. Due on due Goal Pneumococcal Vac cine #2. Due on due Goal Cognitive assessment. Due on due Goal Cytology report of Cervical and vaginal smear or scraping Cyto stain. Due on due Goal Depression screening. Due on due Goal Fasting glucose. Due on due Goal LVEF assessment. Due on due Goal VR12 - screening tool. Due on due Goal Echocardiogram. Due on due Goal URINALYSIS NONAU TO W/O SCOPE. Due on due Goal Pap liquid based for cytology. Due on due Goal AIR BRAKES INSPECTOR exam. Due on due Goal Depression screening. Due on due Goal Fasting glucose. Due on due Goal Pap liquid based for cytology. Due on due Goal VR12 - screening tool. Due on due Goal LVEF assessment. Due on due Goal Echocardiogram. Due on due Goal URINALYSIS NONAU TO W/O SCOPE. Due on due Goal Td vaccine. Due on 17 due Goal Zoster vaccine. Due on due Goal Medroxyprogester one inj. Due on due Goal Cytology report of Cervical and vaginal smear or scraping Cyto stain. Due on due Goal Pneumococcal Vac cine #2. Due on due Goal AIR BRAKES INSPECTOR exam. Due on due Goal Cognitive assessment. Due on due Goal Tobacco cessation counseling completed Goal Pneumococcal Vac cine #2. Due on due Goal VR12 - screening tool. Due on due Goal LVEF assessment. Due on due Goal Echocardiogram. Due on due Goal Mammogram. Due on 6 due Goal Td vaccine. Due on 17 due Goal H&P. Due on due Goal DEXA Scan. Due on 6 due Goal Fasting glucose. Due on due Goal Depression screening. Due on due Goal Cytology report of Cervical and vaginal smear or scraping Cyto stain. Due on due Goal URINALYSIS NONAU TO W/O SCOPE. Due on due Goal Medroxyprogester one inj. Due on due Goal AIR BRAKES INSPECTOR exam. Due on due Goal Cognitive assessment. Due on due Goal Zoster vaccine. Due on due Goal Pap liquid based for cytology. Due on due Goal Fasting glucose. Due on due Goal DEXA Scan. Due on due Goal LVEF assessment. Due on due Goal VR12 - screening tool. Due on due Goal Echocardiogram. Due on due Goal Medroxyprogester one inj. Due on due Goal AIR BRAKES INSPECTOR exam. Due on due Goal Zoster vaccine. Due on due Goal Td vaccine. Due on 17 due Goal Pap liquid based for cytology. Due on due Goal URINALYSIS NONAU TO W/O SCOPE. Due on due Goal Cognitive assessment. Due on due Goal Pneumococcal Vac cine #2. Due on due Goal Mammogram. Due on due Goal Depression screening. Due on due Goal Pap liquid based for cytology. Due on due Goal Pneumococcal Vac cine #2. Due on due Goal Fasting glucose. Due on due Goal Zoster vaccine. Due on due Goal LVEF assessment. Due on due Goal VR12 - screening tool. Due on due Goal Echocardiogram. Due on due Goal Td vaccine. Due on due Goal Cognitive assessment. Due on due Goal Depression screening. Due on due Goal ECG. Due on due Goal DEXA Scan. Due on due Goal Medroxyprogester one inj. Due on due Goal Mammogram. Due on due Goal URINALYSIS NONAU TO W/O SCOPE. Due on due Goal AIR BRAKES INSPECTOR exam. Due on due Goal Pneumococcal Vac cine #2. Due on due Goal Cognitive assessment. Due on due Goal Mammogram. Due on due Goal Td vaccine. Due on due Goal Pap liquid based for cytology. Due on due Goal AIR BRAKES INSPECTOR exam. Due on due Goal Zoster vaccine. Due on due Goal URINALYSIS NONAU TO W/O SCOPE. Due on due Goal DEXA Scan. Due on due Goal Depression screening. Due on due Goal ECG. Due on due Goal Fasting glucose. Due on due Goal VR12 - screening tool. Due on due Goal LVEF assessment. Due on due Goal Echocardiogram. Due on due Goal Medroxyprogester one inj. Due on due Goal LVEF assessment. Due on due Goal VR12 - screening tool. Due on due Goal Echocardiogram. Due on due Goal AIR BRAKES INSPECTOR exam. Due on due Goal Fasting glucose. Due on due Goal URINALYSIS NONAU TO W/O SCOPE. Due on due Goal Depression screening. Due on due Goal Mammogram. Due on due Goal Pap liquid based for cytology. Due on due Goal Cognitive assessment. Due on due Goal Zoster vaccine. Due on due Goal DEXA Scan. Due on 6 due Goal Pneumococcal Vac cine #2. Due on due Goal Medroxyprogester one inj. Due on due Goal Td vaccine. Due on 16 due Goal ECG. Due on due Goal Cognitive assessment. Due on due Goal Zoster vaccine. Due on due Goal Depression screening. Due on due Goal ECG. Due on due Goal Fasting glucose. Due on due Goal Echocardiogram. Due on due Goal URINALYSIS NONAU TO W/O SCOPE. Due on due Goal Medroxyprogester one inj. Due on due Goal Td vaccine. Due on 16 due Goal AIR BRAKES INSPECTOR exam. Due on due Goal Pneumococcal Vac cine #2. Due on due Goal Pap liquid based for cytology. Due on due Goal Zoster vaccine. Due on due Goal Medroxyprogester one inj. Due on due Goal OARRS. Due on du e Goal ECG. Due on due Goal Pneumococcal Vac cine #2. Due on due Goal Pap liquid based for cytology. Due on due Goal AIR BRAKES INSPECTOR exam. Due on due Goal Depression screening. Due on due Goal URINALYSIS NONAU TO W/O SCOPE. Due on due Goal Td vaccine. Due on 16 due Goal Cognitive assessment. Due on due Goal Cognitive assessment. Due on due Goal Pneumococcal Vac cine #2. Due on due Goal ECG. Due on due Goal URINALYSIS NONAU TO W/O SCOPE. Due on due Goal Depression screening. Due on due Goal Td vaccine. Due on 15 due Goal OARRS. Due on du e Goal Medroxyprogester one inj. Due on due Goal AIR BRAKES INSPECTOR exam. Due on due Goal Zoster vaccine. Due on due Goal OARRS. Due on du e Goal Td vaccine. Due on 15 due Goal Medroxyprogester one inj. Due on due Goal THER/PROPH/DIAG INJ, SC/IM. Due on due Goal Pneumococcal Vac cine #2. Due on due Goal Cognitive assessment. Due on due Goal Influenza vaccine. Due on Ap due Goal Depression screening. Due on due Goal URINALYSIS NONAU TO W/O SCOPE. Due on due Goal AIR BRAKES INSPECTOR/Breast exam. Due on due Goal Eye exam. Due on due Goal AIR BRAKES INSPECTOR exam. Due on due Goal Zoster vaccine. Due on due Goal INSERT DRUG IMPL ANT DEVICE. Due on due Goal Zoster vaccine. Due on due Goal INSERT DRUG IMPL ANT DEVICE. Due on due Goal Td vaccine. Due on 14 due Goal AIR BRAKES INSPECTOR/Breast exam. Due on due Goal Depression screening. Due on due Goal THER/PROPH/DIAG INJ, SC/IM. Due on due Goal OARRS. Due on du e Goal Pneumococcal Vac cine #2. Due on due Goal Influenza vaccine. Due on Oc due Goal AIR BRAKES INSPECTOR exam. Due on due Goal Cognitive assessment. Due on due Goal EKG. Due on due Goal Medroxyprogester one inj. Due on due Goal Eye exam. Due on due Goal EKG. Due on due Goal PAP. Due on due Goal Td vaccine. Due on 14 due Goal FOBT. Due on due Goal Colonoscopy. Due on 014 due Goal AIR BRAKES INSPECTOR exam. Due on due Goal Pneumococcal Vac cine #2. Due on due Goal Influenza vaccine. Due on due Goal Urinalysis . Due on 014 due Goal Colonoscopy. Due on due Goal Pneumococcal Vac cine #2. Due on due Goal EKG. Due on due Goal AIR BRAKES INSPECTOR exam. Due on due Goal Urinalysis . Due on due Goal Diabetes screening due Goal Influenza vaccine. Due on due Goal FOBT. Due on due Goal PAP. Due on due Goal Td vaccine. Due on 14 due Future Order: Lab Order Free T4 ([id number]), Ordered on: Ordered Future Order: Lab Order TSH ([id number]), Or dered on: Ordered Future Order: Radiol ogy Order MA SCREENINGMAMMOGRAPHYDIGITAL ([id number]), Ordered on: Ordered Future Order: Radiol ogy Order XR Hip Complete Right ([id number]), Ordered on: Ordered Future Order: Lab Order CBC w/ A uto Diff ([id number]), Ordered on: Ordered Future Order: Lab Order CMP ([id number]), Or dered on: Ordered Future Order: Lab Order Lipid Pr ofile ([id number]), Ordered on: Ordered Future Order: Lab Order TSH ([id number]), Or dered on: Ordered Future Order: Lab Order CBC w/ A uto Diff ([id number]), Ordered on: Ordered Future Order: Lab Order CMP ([id number]), Or dered on: Ordered Future Order: Lab Order Lipid Pr ofile ([id number]), Ordered on: Ordered Future Order: Lab Order CBC w/ A uto Diff ([id number]), Ordered on: Ordered Future Order: Lab Order CMP ([id number]), Or dered on: Ordered Future Order: Lab Order Lipid Pr ofile ([id number]), Ordered on: Ordered Future Order: Lab Order TSH ([id number]), Or dered on: Ordered Future Order: Lab Order BMP ([id number]), Or dered on: Ordered Future Order: Lab Order CBC ([id number]), O rdered on: Ordered Future Order: Radiol ogy Order MA Digital Mammogram Screening ([id number]), Ordered on: Ordered Future Order: Lab Order Urine Cu lture ([id number]), Ordered on: Ordered Future Order: Radiol ogy Order BD Bone Density DEXA ([id number]), Ordered on: Ordered Future Order: Radiol ogy Order HX MA Mammogram Screening Bilateral ([id number]), Ordered on: Ordered History Of Present Illness Encounter Date Complaint History Of Prese nt Illness Red eye x3 days. Pt stat es she felt like there was something in her right eye 3 days ago, but that feeling went away. Then yesterday, patient's granddaughter saw she had a red right eye. Patient is unable to see this in the mirror. Pt denies any pain, drainage, trauma or vision changes. Denies vigorous coughing or vomiting or Valsalva maneuver. Reports blows her nose often throughout the day. She is not on a blood thinner however is on anti-platelet therapy prescribed by cardiology. Recently started oxygen which she uses nightly for sleep on the 1st setting . 6 month follow up Hypothyroidism ; patient recently had thyroid labs completed as ordered by Cardiology, WNL. She continues levothyroxine 50 mcg.CHF; follows with cardiologyOsteopenia; continues alendronate weekly. Denies recent falls, fractures. 6 months follow up CHF; patient discharge from [facility] 09/12/2020. Subsequent echo showed EF 20-25%. Follows with cardiology who recently altered medications.Hypothyroidism; patient continues levothyroxine 50 mcg daily.Osteopenia; patient continues alendronate weekly. Discussed she is due for repeat DEXA scan 6 months follow up Patient state s doing well. Continues to have difficulty sleeping. Denies forgetfulness; family member in room confers patient is not showing signs of dementia. Refill Meds On potassium chl oride and levothyroxine. Insomnia (comments) Patient has 2nd sleep study scheduled at the end of the month and then will follow up with hog stomach preparer, Dr. Larkin right hip pain (comments) Resolv ed secondary to PT. Patient has not needed any oral OTC pain medications. Systolic Heart Failure The sympt oms are reported as being moderate. The symptoms occur constantly. She states the symptoms are chronic. Patient follows with [facility] failure [facility] at [facility] Systolic Heart Failure (comments ) States breathing is good, denies leg swelling, still taking diuretic b.i.d.. Home health will discontinue at end of month as patient has progressed well and is stable. right hip pain Location of pain is right. Additional information: Patient states she is not having any hip pain, taking medication as prescribed and doing PT. Insomnia The patient pres ents with sleep problems. The patient does not have: use of alcohol.Additional information: Patient is with her daughter today, she states Trazodone was not working, took for approx 3 nights with no improvement in sleep. Pt's daughter states pt's hog stomach preparer ordered a sleep study, pt had in August, will be having a 2nd one 10/05/19. Hospitalization Pt was saad laura 2 times in the last 10 weeks at [facility] once in July and once in June and is now being seen by a hog stomach preparer and a creative designer. She was having difficultly breathing. They changed her diuretic to twice per day. Follow Up of Insomnia The patidick black presents with sleep problems. These complaints are continual. The patient does not have: use of alcohol. The patient is experiencing difficulty initiating sleep and difficulty maintaining sleep.Additional information: Pt completed a sleep study in [place] last night at the [facility]. Pt tried the Belsomra and stated that it did not work. She states that she is not sleeping well. Pt states that it takes a couple of hours to fall asleep and she does not stay asleep very long. Hospitalization (comments) Tete goncalves had a recent fall. Patient has bruising under her left eye that is improving. Follow Up of Insomnia (comments) Patient just had a sleep study performed last night. Patient will be following up with Chief Sales Officer for results. Patient has not been taking Trazodone. Patient states no sleep medications has helped with sleep. Patient is not sleeping well. Takes hours for patient to fall asleep. Patient has been breathing better after leaving hospital. Patient does 3 breathing treatments a day. Follow Up of Hyperli pidemia (comments) Patient is still seeing Operations Support Analyst. Patient has an upcoming appointment. Follow Up of musculo skeletal pain (comments) Patient fell on her left side. Patient hit the left side of her face on a step stool during fall. Patient is still having hip pain. Patients imaging discussed with patient. Patient denies wanting steroid injections or oral steroids. Patient is doing physical therapy for two weeks. Physical therapist comes 3 times a week. Patient states pain has been getting better. Follow Up of Hypothy roidism (comments) Denies any swelling. Follow Up of musculoskeletal carlos n Onset: 5 months ago. It occurs intermittently and is fluctuating. Location: right hip. There is no radiation. The pain is dull. Context: there is an injury. The pain is aggravated by movement. Associated symptoms include difficulty initiating sleep. Hand Dominance: right. Additional information: Pt states that she fell out of bed 5 months ago and states that she still has pain in that hip, she states that a couple weeks ago kwaku was not able to walk through a store because of it. Follow Up of Hyperlipidemia Reas ons for screening do not include alcohol use. Pertinent negatives include heartburn. Additional information: Patient will need a refill on her atorvastatin, this medication needs to be sent to [facility] not [facility]. Follow Up of Hypothyroidism The symptoms are reported as being mild. She states the symptoms are chronic. Pt states that she does take her synthroid every day. Denies any sides effects from the medication. Pt states that she still has cold intolerance. musculoskeletal pain Onset: 6 we eks ago. Severity level is moderate. It occurs occasionally and is worsening. Location: right (hip). There is no radiation. Trauma type: fall, occurred at home, 6 Weeks ago. The pain is aggravated by walking. Pertinent negatives include bruising and swelling. Hand Dominance: right. Additional information: Pt. states she fell out of bed and pain started 2 weeks after she fell. Patient has been taking Tylenol Pm. Pt. states she took 1 Tylenol Pm this morning for pain. Pt. has had no xrays. musculoskeletal pain (comments) Patient fell out of bed. Patient felt fine after falling. Patient went back to bed after fall. Patient states she rolled off the bed and fell onto her right side. Patient has trouble sleeping at night. Patient denies pain being reason for trouble sleeping. Patient has mild pain with walking. Denies radiation of pain. Denies low back or groin pain. Patient has been using a cane while walking since falling. Denies any changes to her gait stating she always limbs . Thyroid problems Presenting symp toms include fatigue and insomnia. Presenting symptoms do not include atrial fibrillation, rapid heart beat and skin and nail changes. Risk factors include female. Additional information: Patient currently takes levothyroxine. Hyperlipidemia Reasons for scre ening do not include alcohol use and obesity. Pertinent negatives include bloating, chest pain, claudication, constipation, diarrhea, dizziness, fatigue, headache, heartburn and myalgia. Insomnia The patient pres ents with sleep problems. Relevant history: a BMI of 26.13. The patient does not have: use of alcohol. The patient denies headache upon awakening, heartburn, nasal congestion, sleep walking, weight gain or wheezing.Additional information: Patient takes trazodone PRN, she feels like it has more to do with her mattress than it does her ability to sleep. Hypertension Pertinent negati ves include chest pain, claudication, dyspnea, fatigue, headache, hematuria, irregular heartbeat/palpitations, nausea and vomiting. Additional information: Cardiology recently gave her a clean bill of health and she is doing well, they performed an EKG on her and everything came back within normal range. Nicotine dependance Patient stat es that the smoking is still the same, she is smoking 1 pack a day. Insomnia The patient pres ents with sleep problems. The patient does not have: use of alcohol. The patient is experiencing difficulty maintaining sleep and increased fatigue. The patient denies awakening with choking, depression, gasping during sleep, heartburn, irritability, personality changes, sleep walking, wheezing or witnessed apnea or irregular nighttime breathing.Additional information: Nightly. Hyperlipidemia Risk factors inc lude age over 50. The patient is adhering to medication and follow-up for their hyperlipidemia. Associated symptoms include constipation and increased fatigue. Pertinent negatives include chest pain, diarrhea, dizziness, dyspnea, heartburn, joint pain, myalgia, nausea, palpitations and rash. Additional information: Atorvastatin. Thyroid problems Presenting symp toms include fatigue and insomnia. Presenting symptoms do not include atrial fibrillation, rapid heart beat and skin and nail changes. Risk factors include female. Additional information: Levothyroxine 50mcg. [facility] Patient has a 5b ypass 3 years ago. Patient had this done at [facility] Patient states that she did have a stoke and then ended up with the bypass.Patient is up to date on blood work. Patient is up to date on mammogram testing. Hypertension Pertinent negati ves include chest pain, dyspnea, irregular heartbeat/palpitations, nausea and vomiting. chronic conditions (comments) He r art objects repairer was worried about diabetes. We checked her FBS and it was 89. (Has been slightly over 100 in the past, but stable for several years) chronic conditions 1) Essential (primary) hypertension (onset 12/21/2014; Controlled. Hypertension (Positive for checking BP at home, exercising (treadmill), losing weight (lost 2 lb), reducing alcohol and using tobacco (daily 1ppd). Negative for following diet, having new symptoms and medication issues.)) 2) Hyperlipidemia, unspecified (Controlled. Positive for exercising, following diet and med compliance. Lipids drawn on 09/30/18.) 3) Hypothyroidism, unspecified (onset 12/28/2012; Controlled. Thyroid (Positive for med compliance, weight changes (lost 2 lb) and sleeping. Negative for side effects, symptoms, labs and symptoms.). Thyroid (Positive for med compliance, weight changes (lost 2 lb) and sleeping. Negative for side effects, symptoms, labs () and symptoms.) TSH on 10/19/17 was 2.49.) 4) Insomnia, unspecified (onset 07/12/2018; Controlled. Patient states she only takes the Belsomra occasionally, but she does not feel like it works that well. She is still having trouble falling and staying asleep.) chronic conditions (comments) Po or sleep. Trazadone didn't help. medicare preventive (comments) N o concerns regarding mental capacity. Mini cog today: 5/5Still smoking (again). She quit after her hospitalization last year. 1 ppd. States she can go several hours without if she has to (in a car, etc). Not busy enough during the day to distract her.Thinks she maybe got the Prevnar-13 shot in the hospital. chronic conditions 1) Essential (primary) hypertension (Controlled. Hypertension (Positive for following diet and using tobacco (1 ppd of cigs). Negative for checking BP at home, exercising, losing weight (4 lb gain), having new symptoms and medication issues.)) 2) Other specified disorders of bone density and structure, unspecified site (Controlled. Needs r/f of alendronate.) 3) Insomnia, unspecified (onset 07/12/2018; Poorly controlled. Not sleeping well, can't fall asleep or stay asleep at night. Trazodone didn't help.) declines breast exam medicare preventive The patient has not felt depressed and has had interest and pleasure doing things recently. Functional Status: No impairment on 07/12/2018. The patient needs help with activities of daily living. The patient is not at risk for falls. The patient has fallen 1 times in the last year. The fall(s) did not result in injury. Patient's activity level is sedentary. Patient exercises occasionally. The patient has smoke detectors in the home. Patient reports using a seatbelt in vehicles. Daughter cooks meals. Patient reports a healthy diet. Patient reports getting calcium from dietary sources. Patient reports taking a vitamin D supplement. Patient reports taking a multivitamin daily. Patient does not take folic acid. Relevant history is positive for tobacco use. Relevant history is negative for alcohol use. chronic conditions (comments) Emily murrell saw her last month. They thought she was doing very well. They are extending her visits to 4-6 months. She continues with daily weights. Continues to smoke 1 pack per day. Feels well overall. chronic conditions 1) Essential (primary) hypertension (Recurrent. Hypertension (Positive for checking BP at home (110-120/60-70), following diet and using tobacco. Negative for exercising, losing weight, reducing alcohol, having new symptoms and medication issues.)) 2) Hyperlipidemia, unspecified (Recurrent. Hyperlipidemia (Positive for med compliance. Negative for exercising and following diet.)) 3) Other specified disorders of bone density and structure, unspecified site (no problems) 4) Hypothyroidism, unspecified (onset 12/28/2012.no issues) chronic conditions 1) Essential (primary) hypertension (Controlled. Hypertension (Positive for checking BP at home (110-115/60's), following diet and using tobacco (1 ppd of cigs). Negative for losing weight (1 lb gain), having new symptoms and medication issues.)) 2) Other specified disorders of bone density and structure, unspecified site (Controlled. No falls or fractures in the past year. Takes a multivitamin daily but no calcium supplement. Cont. on the alendronate weekly.) 3) Acute systolic (congestive) heart failure (Stable. CHF (Positive for weighing daily, following diet, seeing creative designer (December 2017), using tobacco (1 ppd) and hospitalized. Negative for having new symptoms and cardiac function.) - bumex was decreased to 0.5 mg 2 tabs in am and 1 tab in pm d/t urinary frequency. Pt. can't afford 0.5 mg tabs, requesting new script for 1 mg tabs and she will cut in half.) 4) Nicotine dependence, other tobacco product, uncomplicated (onset 07/13/2017; Poorly controlled. Cont. to smoke 1 ppd of cigarettes.) chronic conditions (comments) Marielena hollis visit in early December was after hospitalization for CHF. She had not started the new regimen of meds yet. We worked that all out. She then saw cardiology after that and further adjustments made. Currently on Bumex 1 mg in a.m. and 0.5 mg in p.m. Wants 1 mg tablets because they are much cheaper. Dtr will cut in half. She states her daily weights have been very consistent.Had quit smoking for at least 4 months after being in hospital in the past. Used patches in the hosp. Trying to use them now. Gets urge to smoke. Wonders about Chantix. When discussing it, the dtr seemed convinced the pt. would not take them because of bad dreams. Wants K+ capsules instead of large tabs. Easier to swallow. Follow Up of [facility] (comments) Discharge summary shows NO lasix, and replaced by Bumex 1 mg BID with 20 meq of potassium instead of 10. The dx of pneumonia was questionable and she has been home now without any antibiotics. I don't think she needs the Zithromax.She was also advised to see Chief Sales Officer at least once. They forgot the name. No appt was made. Follow Up of hospitalization Pt. was admitted to [facility] from 12/04/17 to 12/08/17 for CHF exacerbation, COPD, respiratory failure and pneumonia. She and her daughter state there were no med changes upon d/c, however, it appears as though bumex, potassium, and azithromycin were sent to [facility]. Pt. states she was only told to f/u with pcp and cardiology. She sees Frankie Prince CNP on 12/24/17. - reports was very tired/fatigued the first week out of the hospital, is now feeling better. Is weighing self daily and also checking oxygen at home. chronic conditions (comments) Us ing the patch for smoking cessation. Takes it off during the night. dizzy spell (comments) BP has be en low. She thinks she doesn't drink enough water. She had something to eat and drink prior to the episode. Did not break sweat; sat down and rested and it resolved. Cardiology thought she could reduce the lasix, but left it up to me. THey ordered labs, including BNP. dizzy spell The symptoms beg an 3 days ago. Pt had dizzy spell 10/12/17. Lasted 15 minutes. She has not been dizzy since. chronic conditions 1) Essential (primary) hypertension (Stable. Hypertension (Positive for following diet, losing weight (2.8 lb), using tobacco (last cigarette yesterday) and having new symptoms (dizzy spell 2 days ago). Negative for checking BP at home, exercising, reducing alcohol and medication issues.)) 2) Hypothyroidism, unspecified (onset 12/28/2012; Stable. Last TSH 08/22/16= 1.98. Cardiology has given them a lab order (BMP,BNP,cbc,lipid, alt,ast,alk,alb) If you want to order anything else.) 3) Other specified peripheral vascular diseases (Stable.) 4) Hyperlipidemia, unspecified (Stable. last lipids 01/13/17) chronic conditions (comments) Ec ho done in January shows 30-40% EF of heart. Cardiol. stopped the cardizem. Quit smoking for a few months after her heart surgery. Used patch in hospital. Tried patch at home and gave her nightmare. chronic conditions 1) Essential (primary) hypertension (Controlled. Hypertension (Positive for following diet and using tobacco (1 ppd of cigs). Negative for checking BP at home, exercising, losing weight (3 lb gain), having new symptoms and medication issues.) - reports Cardizem was stopped in January by cardiology.) 2) Acute systolic (congestive) heart failure (Controlled. CHF (Positive for weighing daily, following diet, seeing creative designer (January 2017) and using tobacco. Negative for having new symptoms, hospitalized and cardiac function.)) 3) Nicotine dependence, other tobacco product, uncomplicated (onset 07/13/2017; Poorly controlled. Currently smokes 1 ppd of cigarettes.) Discuss DEXA results Discuss DEXA results (comments) Her ercent DEXA shows normal density in hip, but '1.4 in spine. Both have dropped by 8 % in 3 years. She has returned to smoking and she is now motivated again to quit. Used nicotine patch at . 's that she liked a lot. Bought a generic OTC and did not like it. Currently not taking calcium. too many pills requests breast exam today. chronic conditions 1) Essential (primary) hypertension (Controlled. Hypertension (Positive for exercising (at home therapy ex.), following diet, losing weight (1 lb) and using tobacco (1 ppd of cigs). Negative for checking BP at home, having new symptoms and medication issues.)) medicare preventive (comments) s moking 1 ppd. Had quit for 4 months while in hospital (CVA) and [place]. States she is enjoying it and is not ready to quit. chronic conditions (comments) Br eathing is OK. Wants to stop some of her meds. medicare preventive The patient has not felt depressed and has had interest and pleasure doing things recently. SLUMS assessment completed, with a total score of 25, Mild Neurocognitive Disorder. The patient does not need help with activities of daily living. The patient is not at risk for falls. The patient has fallen 1 times in the last year. The fall(s) did not result in injury. Patient's activity level is sedentary. Patient exercises occasionally. The patient has smoke detectors in the home. Patient reports using a seatbelt in vehicles. Patient reports a healthy diet. Patient reports getting calcium from dietary sources. Patient reports not taking Vitamin D. Patient reports taking a multivitamin daily. Patient does not take folic acid. Relevant history is positive for tobacco use, alcohol use. memory problems The symptoms beg an 1 month ago. Per pt. daughter pt. seems to be confused at times. Sometimes during conversation she can't follow or figure out what the person is saying. She wants to make sure she's ok, not sure if it's normal with age or she has the start of dementia. Cough (comments) It appears the lisinopril was started for her CHF not for BP. Very low dose. Will try enalapril instead 2.5 mg.She happens to have a loose cough also today. Denies feeling SOB, or wheezing. She has never needed inhalers. memory problems (comments) Pt. d oes not have difficulty finding words etc. Was scheduled for Medicare WEllness last Aug, but was canceled due to stroke. Cough Onset: 2 Months. The symptoms are persistent. Associated symptoms include cough (dry) and rhinitis. Pertinent negatives include chills/rigors, fatigue, fever, nasal congestion, otalgia or pharyngitis. Additional information: Pt. coughs during the day and night, sometimes can't sleep b/c of it. Pt. has been on Lisinopril since last May, is wondering if this a side effect of the medication. discuss thyroid nodules per CT Follow Up of Anxiety (comments) Not smoking. Still gaining strength. Able to do housework. staple (comments) anterior thigh . Follow Up of CHF (comments) Has been stable. Saw cardiology early Sep. No changes were made. She evidently has a history of paroxysmal A-fib. Hematology has her off her coumadin since . Next appt there is end of November. discuss thyroid nodu les per CT (comments) 1 nodule seen in each lobe of thyroid. Denies any sx's. including choking, coughing, dysphagia.She is on 50 mcg of levothyroxine. Follow Up of Anxiety This is a f ollow up visit. The patient reports functioning as not difficult at all. Additional information: She is not taking Sertraline or xanax any more. Doing well. staple Pt found another staple right upper leg. Follow Up of CHF She has been ma naged with ANGIE inhibitor therapy and beta-gosia therapy. Additional information: Pt is doing well- she says at home pulse ox is usually 95%. anxiety Additional infor mation: She has not needed Xanax and would like to stop Sertraline when it is gone. 2 mika left behind knee. They are left from vascular procedure since June. Follow Up of CHF The problem is improving. She has been managed with ANGIE inhibitor therapy and beta-gosia therapy. Associated symptoms include cough Pertinent negatives include chest pain, dyspnea and increased fatigue Additional information: She is off O2. Pulse ox has been running 95 at home. She does note a dry cough at night when she sleeps. She wears compression stockings. anxiety (comments) Currently she is taking HALF of a 25 mg. of sertraline. Follow Up of CHF (comments) She is doing daily weights. Her dtr let her drive and she did very well.Dtr checked with cardiology about the O2 before she discontinued. They agreed. Bloodshot eye The symptoms beg an on 09/13/2016. She states the symptoms are acute. Pt. daughter noticed her right eye was bloodshot approx. 4 days ago. Pt. denies any kind of discomfort in the eye. She has been on Coumadin since last June following a stroke and CT. She denies any bruising about her body or dark/tarry stools. She is supposed to be off the Coumadin on 10/18/16 and follows up with Stephan (hematology) in November.patient states no vision changes or eye pain and redness of eye improving since initial onset Follow Up of [facility]/SNF stay (comments) Pt was seen here mid Jun, after having stroke. Since then, she was evaluated for carotid surgery, which led to cardiac cath. Heart was worse than the carotids. Had CABG (x5) on 3 and 2 days later, had endarterectomy (left). Was rehabbing at [place] and went into heart failure. Including fluid build up in lungs. Had second liter of fluid drawn off today by radiology. F/u appt with cardiology is Sep.11.Currently finishing Bactrim for UTI. Also on Bacid for a few more days. Taking iron BID for anemia. Has xanax to usein the evening for anxiety.She needs a bedside camode at home. Visiting nurse has been coming out and will be drawing protime tomorrow. she is on oxygen. Dtr is staying with her and setting up meds. Follow Up of hospital/SNF stay Chris garcía was hospitalized at [facility] from 08/02/16 to 08/06/16 for CHF exacerbation. From there she went to [facility] for rehab. Follow Up of CVA The risk factor s include age > 50. Additional information: Pt was admitted to [facility] 05/30/16 after having a fall with left sided weakness. She was discharged 06/11/16.Patient has PT and OT coming to her house and her daughter is staying with her. She has visiting nurse 3 /wk and Life alert. Follow Up of CVA (comments) She (and dtr) feel she has gained about 50% of her strength back in her left leg. Right arm feels pretty normal. Had slurred speech and trouble swallowing. Denies problems with that now. Using cane for walking. Appettite is good. Nocturia, but have reduced her fluid intake before bed and things are better. QUIT smoking !! Additional Patient is gasper [facility] - otolarynithology for thyroid nodules and nodule behind right? ear. Dr Mcclure -neurology because she has a mass on her frontal lobe. Dr Horn - vascular for her carotid arteries. Patient was taking potassium before her stroke and had IV potassium i the hospital but was not sent home on it. Additional (comments) She had ru n out of her potassium few months back. Did not call for refill. Medicare preventive The patient has not felt depressed and has had interest and pleasure doing things recently. SLUMS assessment completed, with a total score of 26, Normal.The patient is not at risk for falls. Patient exercises occasionally. The patient has smoke detectors in the home. The patient does not have firearms in the home. Patient reports using a seatbelt in vehicles. Patient reports a healthy diet. Patient takes calcium supplements. Patient reports taking Vitamin D. Patient reports taking a multivitamin. Relevant history is positive for tobacco use, alcohol use. Medicare preventive (comments) s till smoking 1 ppd. NO desire to quit. chronic conditions 1) Essential (primary) hypertension (Controlled. Hypertension (Positive for exercising (bowling/walking), following diet and losing weight (weight down 7#). Negative for checking BP at home, having new symptoms and medication issues.)Patient refuses a flu shot today.) chronic conditions (comments) St ill smoking. 1 ppd. Not ready to quit. Denies SOB or coughLABS reviewed. HCT is 53. Mostl likely from her smoking. Rash (comments) not itchy, left breast only chronic conditions (comments) Lynn d 3.2 Potassium in JUN. Was not repeated. Takes daily Pot. pill. Rash The patient pres ents for Rash. This episode began 2 days ago. The symptom(s) are described as mild, improving and occurs occasionally. Affected area(s) include undewr breasts. The patient describes the affected area(s) as red. Denies aggravating factors. Relieving factors include neopsporin. Associated symptoms include erythema (skin). Pertinent negatives include bleeding, cracking and painful rash. chronic conditions 1) Unspecifie d essential hypertension (Stable. Hypertension (Positive for following diet, losing weight (9 lbs), using tobacco (cigarettes) and having new symptoms (rash under breasts). Negative for checking BP at home, exercising, reducing alcohol (doesn't smoke) and medication issues.)) Preventive exam : 6. Ira ty: Term: 6. Livin. Negative for dysmenorrhea. Negative for: breast discharge and breast lump(s). Positive for: breast self exam.Postmenopausal: Age: 48, Type: natural. Positive for Hormone replacement therapy (Type: estrogen/progesterone, Number of years: 12). Menopausal symptoms negative for: hot flashes and insomnia. Pertinent negatives include anxiety, depression and dyspareunia. She takes calcium supplements. She does take multivitamins. She does drink alcohol. chronic conditions 1) Unspecifie d hypothyroidism (onset 12/28/2012; Stable.) 2) Benign essential hypertension (Stable. Hypertension (Positive for checking BP at home, following diet, reducing alcohol and using tobacco. Negative for exercising, losing weight, having new symptoms and medication issues.) Checked her bp meter and it says 155/76 compared to our reading.) 3) Other and unspecified hyperlipidemia (Stable. see labs) chronic conditions (comments) K+ was low with labs earlier this month. Repeat was 3.3. Not really eating more foods with K+. Still smoking. Hgb 16.5, HCT 50. (1ppd)Does not check BP at home.CAD: had CT about 20 years ago. Placed on ASA at that time. Not followed by cardiology. Had EKG last year. Functional Status Date Functional Assessmen t No Information Instructions Date Instruction Additional Infor apolinar Follow-up in 1 year or sooner as needed Related to Hypothyroidism, unspecified Discussed sleepy sherrell e tea [id number] Wedge pillow Related to Insomnia, unspecified Continue levothyroxine 50 mcg Re lated to Hypothyroidism, unspecified Get DEXA scan done a t your convenience; you will be called with any abnormal results that require immediate medical attentionContinue alendronateFollow-up in 6 months or sooner as needed Related to Osteopenia of neck of left femur Follow-up in 6 month s or sooner as needed Related to Medicare annual wellness visit, subsequent Tylenol as needed Related to Ost eoarthritis of right hip, unspecified osteoarthritis type Methods to improve s leep hygiene: Keep room cold at night. Exercise regularly, but no exercise 3+ hours before bed, and no screens 1-2 hours before bed. No caffeine after lunch. No alcohol near bedtime; no night-cap . Lavender and Valerian have been shown to help with sleep. There is an over the counter tea called Sleepy Time tea that contains valerian which can help. Try melatonin (a natural hormone) 5 mg nightly (Over the counter)Sleep only as much as you need to feel rested, then get out of bed. Keep a regular sleep schedule. Do not try to sleep unless you feel sleepy. Naps throughout the day of no more than 30 min at a time can help increase attentionPractice Mindfulness meditation. Three smart phone applications that can help with this are Headspace, Calm and CBT-i coachIn some people weighted blankets can help with sleep Related to Insomnia, unspecified Get thyroid labs don e at your earliest convenience; you will be called with any changes to medications that are neededContinue levothyroxine 50 mcg, refills sent Related to Hypothyroidism, unspecified Follow-up with Dr. Chris biggs in 6 months or sooner as needed Related to Insomnia, unspecified Start trazodone, rosalie e as directed, aware of use and side effectsFollow up with Dr. Jesus in 4 weeks to ascertain effectiveness of medication Follow-up with sleep doctor to review results of sleep study Related to Insomnia, unspecified Continue physical th erapyContinue Tylenol taken as neededFollow-up with Dr. Jesus in 4 weeks to ascertain effectiveness of these methods. Counseling regarding steroids, oral and injection provided. If methods above do not work, can consider these in future. Related to Osteoarthritis of right hip, unspecified osteoarthritis type Continue Atorvastati n, refills sent to pharmacy ([facility]). All other medications go to [facility] Related to Hyperlipidemia, unspecified hyperlipidemia type Fall precaution handout provided Related to History of recent fall Discontinue Tylenol PM which can make people drowsy Start regular Tylenol, take as prescribedFollow-up in 1-2 months to ascertain effectiveness of medicationWe will consider physical therapy on follow-up Related to Acute right hip pain Follow-up in 6 months Related to Nicotine dependence, cigarettes, uncomplicated Follow up in 6 months Related to Hyperlipidemia, unspecified hyperlipidemia type Get lab work done at your earliest convenience, you will be called with any abnormal results and if any changes to medication are needed. If medication changes needed, repeat thyroid labs will be obtained in 6 weeks along with a follow up appointment Related to Hypothyroidism, unspecified Continue melatonin n ightlyContinue trazodone as needed for sleepLet Dr. Jesus know if he floating her mattress helps your sleep; if not other treatment modalities may be tried Methods to improve sleep hygiene: Keep room cold at night, no exercise 2-3 hours before bed, no screen 1-2 hours before bed, Lavender and Valerian have been shown to help with sleep. There is an over the counter tea called sleepy time tea that contains valerian which can help. Try melatonin 5 mg nightly (Over the counter)Naps throughout the day of no more than 30 min at a time can help increase attentionPractice Mindfulness meditation. Three smart phone applications that can help with this or called Headspace, Calm and CBT I coachIn some people weighted blankets can help with sleep Related to Insomnia, unspecified Attempt to cut down on smoking as much as you can as this increases your risk of stroke, heart attack, high blood pressure etc. Related to Nicotine dependence, other tobacco product, uncomplicated Take trazodone as pr escribed 30 min before bedWatch for side effects of drowsiness upon wakening and discontinue medication if this occursFollow-up with Dr. Jesus in 4 weeks to ascertain effectiveness of medication Methods to improve sleep hygiene: Keep room cold at night, no exercise 2-3 hours before bed, no screen 1-2 hours before bed, Lavender and Valerian have been shown to help with sleep. There is an over the counter tea called sleepy time tea that contains valerian which can help. Try melatonin 5 mg nightly (Over the counter)Naps throughout the day of no more than 30 min at a time can help increase attentionPractice Mindfulness meditation. Three smart phone applications that can help with this or called Headspace, Calm and CBT I coachIn some people weighted blankets can help with sleep Related to Insomnia, unspecified Continue levothyroxine Related t o Hypothyroidism, unspecified Proceed with sonogra m of thyroidMight need FNA Related to Thyroid nodule dtr reminded me that paleology teacher wants the coumadin stopped in OCT. Related to Cerebrovascular accident (CVA) due to thrombosis of right middle cerebral artery if neuro s/s to ER i mmediatleyencouraged rest and BP monitorcoags draw today and michael 1 week Related to Eye hemorrhage, right cont. iron supplement Related to Iron deficiency anemia due to chronic blood loss finish Bactrim Related to Urina ry tract infection, site unspecified cont. same meds. f/u with cardio logy Related to Acute systolic congestive heart failure stable since CABG on Jul. 3 Rela liss to Coronary artery disease involving [place] heart without angina pectoris, unspecified vessel or lesion type stable since carotid surgery Rel ated to Right-sided carotid artery disease apparently stable Related to Cer ebrovascular accident (CVA) due to thrombosis of right middle cerebral artery cont. without ciggs. Related to Tobacco dependence in remission being followed by cardiology. Re lated to Pleural effusion due to CHF (congestive heart failure) cont with home health Related to Cerebrovascular accident (CVA) due to thrombosis of right middle cerebral artery congratulated her Related to Tob acco dependence in remission K+ today Related to Hypok alemia cont PT/OT Related to Left- sided weakness RF prn Related to Other hyperlipidemia Rec. Prevnar-13, tet anus booster, shingles shot. Related to Encntr for general adult medical exam w/o abnormal findings colonoscopy recommen ded. declined. FOBT recommended Related to Encntr for general adult medical exam w/o abnormal findings check next time Related to Drug- induced hyperkalemia Cont. all med at current dosing. Related to Essential (primary) hypertension Advised annual exam. Related to Essential (primary) hypertension Rx ketoconazole Related to Yeast dermatitis recheck TSH today Related to Uns pecified hypothyroidism Check K+ today. Call with result s Related to Hypokalemia Will call with results Related t o Hypokalemia Cont. all med at current dosing. Related to Unspecified essential hypertension reviewed labs and same meds refi lled Related to Other and unspecified hyperlipidemia Start KCl capsule (1 0 meq) once a day. recheck in 2 months Related to Hypokalemia Cont. all med at current dosing. Related to Hypertension, Benign Advised annual exam. Related to Hypertension, Benign Cont. all med at current dosing. Related to Hypertension, Benign Cont. all med at current dosing. Related to Hypertension, Benign quit smoking Related to Hyper tension, Benign Cont. exercise efforts. Related to Hypertension, Benign Assessments Type Assessment Date No Information Patient Care Teams Name Effective Dates (start - stop) Status Members No Information
[2025-06-01] VITALS (30 sets, daily range): BP systolic 157–209; BP diastolic 63–92; PULSE 62–86; TEMP 36.5; O2SAT 96–98; BMI 26.5
--- NOTE | 2025-06-01 10:15 | CT_ITS ---
The [address] [address] Patient Name: GABRIEL GOULD MRN: [id number] date: 1940 Sex: F Assigned Patient Location: ER Current Patient Location: ER Accession/Order Number: [id number] Exam Date: 06/01/2025 10:45 Report Date: 06/01/2025 11:11 At the request of: DUSTIN DAVIS MD Procedure: CT head/brain wo con CT head/brain wo con 06/01/2025 10:55 AM SIGNS AND SYMPTOMS: ^Dizziness TECHNIQUE:Multi-detector CT axial slices of the brain were obtained without IV contrast. CT was performed with one or more of the following dose reduction techniques: Automated exposure control, adjustment of the mA and/or kV according to patient size, or use of iterative reconstruction technique. COMPARISON: None. FINDINGS: There is no shift of the midline structures, acute intracranial bleeding, mass effects, or evidence of acute ischemia. Atherosclerotic changes are noted in the V4 segments of the vertebral arteries and intracranial segments of the internal carotid arteries. There is age-related cortical atrophy. This periventricular white matter hypoattenuation. Remote lacunar infarcts are noted in the caudate nuclei. The ventricular system is normal in size. The brainstem and the cerebellum are unremarkable. The visualized intraorbital contents and the infratemporal soft tissues show no acute abnormality. The thickening is noted right Sphenoid sinus. The osseous structures in the skull base and the calvarium show no abnormality. CT/CT head/brain wo con IMPRESSION: No acute intracranial. Chronic age-related neurodegenerative changes are noted as above. Impression dictated by: Frank Vargas M.D. 06/01/2025 11:11 AM Dictation Location: [place] [address] Electronically authenticated by: [id number] Y Date: 06/01/2025 11:11
--- NOTE | 2025-06-01 10:15 | ECG_ITS ---
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 Measurements Intervals [place] Rate: 64 P: 270 VA: 160 QRS: 60 QRSD: 122 T: 29 QT: 446 QTc: 455 Interpretive Statements NORMAL SINUS RHYTHM 2450 Right bundle branch block 9150 abnormal ECG Compared to ECG 05/02/2019 21:09:05 Atrial fibrillation no longer present Electronically Signed On 06-02-2025 7:30:22 EDT by RUSSELL BAPTISTE M.D.
--- NOTE | 2025-06-01 10:15 | XR_ITS ---
The [address] [address] Patient Name: GABRIEL GOULD MRN: [id number] date: 1940 Sex: F Assigned Patient Location: ER Current Patient Location: ER Accession/Order Number: [id number] Exam Date: 06/01/2025 10:45 Report Date: 06/01/2025 11:13 At the request of: DUSTIN DAVIS MD Procedure: XR chest 1V XR chest 1V 06/01/2025 10:55 AM SIGNS AND SYMPTOMS: Dizziness PROTOCOL: Frontal radiograph of the chest COMPARISON: 05/02/2019 FINDINGS: The trachea is midline. The heart and mediastinal structures are within normal limits. The lung parenchyma is clear. The bony thorax is intact. Degenerative changes are noted in the shoulders and thoracic spine. XR/XR chest 1V IMPRESSION: No acute cardiopulmonary pathology. Impression dictated by: Frank Vargas M.D. 06/01/2025 11:13 AM Dictation Location: [place] [address] Electronically authenticated by: [id number] Y Date: 06/01/2025 11:13
--- NOTE | 2025-06-01 10:16 | ED.GENADUL1 ---
HPI HPI - General Adult General Chief complaint: Dizziness Stated complaint: dizziness Time Seen by Provider: 06/01/25 09:58 Source: patient Mode of arrival: Wheelchair History of Present Illness HPI narrative: 84-year-old female presented to the emergency department for dizziness. She explains that her head is spinning like a top when she stands up. It is not entirely clear when this started. She states she has been lightheaded for a few weeks and this dizziness may or may not of started last night. She has not fallen but has caught herself a few times before she fell. No headache or chest pain or palpitations. No fever or vomiting. Related Data Home Medications ?Medication ?Instructions ?Recorded ?Confirmed aspirin 81 mg tablet,delayed 81 mg PO DAILY 06/01/25 06/01/25 release (Adult Aspirin Regimen) atenolol 50 mg tablet 50 mg PO DAILY 06/01/25 06/01/25 glucosamine HCl PO DAILY 06/01/25 krill oil PO DAILY 06/01/25 losartan 100 mg tablet 100 mg PO DAILY 06/01/25 06/01/25 nvnexleqyayh-wjnjlbnf-vofiwa tablet 1 tab PO DAILY 06/01/25 06/01/25 simvastatin 10 mg tablet 20 mg PO DAILY 06/01/25 06/01/25 Previous Rx's ?Medication ?Instructions ?Recorded meclizine 25 mg tablet 25 mg PO TID PRN dizziness #20 tabs 06/01/25 Allergies Allergy/AdvReac Type Severity Reaction Status Date / Time tetanus and diphtheria Allergy Unknown Verified 06/01/25 09:59 toxoids Review of Systems ROS Narrative A ten point review of systems is negative except as noted above. PFSH PFSH Social History Little interest or pleasure in doing things: not at all Feeling down, depressed, or hopeless: not at all Exam Narrative Exam Narrative: Nurses note and vital signs reviewed and patient is not hypoxic. General:The patient appears well and in no apparent distress.Patient is resting comfortably on cart. Skin:Warm, dry, no pallor noted.There is no rash noted. Head:Normocephalic, atraumatic Eye: Normal conjunctiva, no drainage Ears, Nose, Mouth, and Throat: oral mucosa is moist. Nares patent. Cardiovascular:Regular Rate and Rhythm Respiratory:Patient is in no distress, no accessory muscle use, lungs are clear to auscultation, no wheezing, rales or rhonchi Back:non-tender GI: Soft and nontender Musculoskeletal: The patient has no evidence of calf tenderness, no pitting edema, symmetrical pulses noted bilaterally Neurological:A&O, normal speech; upper and lower extremity strength 5 out of 5 and symmetric; hard of hearing Psychiatric:Cooperative Constitutional Vital Signs, click to edit/add: Last Vital Signs Temp 97.7 F 06/01/25 10:04 Pulse 70 06/01/25 12:50 Resp 14 06/01/25 12:50 BP 157/63 H 06/01/25 12:38 Pulse Ox 98 06/01/25 12:50 O2 Del Method Room Air 06/01/25 10:04 Course Vital Signs Vital signs: Vital Signs Pulse Oximetry 98 06/01/25 10:00 Temperature 97.7 F 06/01/25 10:04 Pulse Rate 70 06/01/25 12:50 Respiratory Rate 14 06/01/25 12:50 Blood Pressure 157/63 H 06/01/25 12:38 Pulse Oximetry 98 06/01/25 12:50 Oxygen Delivery Method Room Air 06/01/25 10:04 Medical Decision Making [facility] Narrative Medical decision making narrative: Your workup including CT brain is negative. She was given Antivert and seems to be feeling improved here. Blood pressure was elevated upon arrival most likely due to the fact that she did not take her medicine this morning. She was given IV hydralazine, 10 mg, and her blood pressure normalized and she is able to be discharged home. Treatment diagnosis and follow-up were discussed thoroughly with the patient and her family. She was given a prescription for Antivert. Differential Diagnosis Differential Diagnosis: Dehydration, anemia, UTI, intracranial hemorrhage Lab Data Lab results reviewed: Yes I reviewed the patient's lab results Labs: Lab Results 06/01/25 06/01/25 Range/Units 10:10 12:35 WBC 9.2 (4.0-11.0) 10^3/uL RBC 4.12 L (4.20-5.40) 10^6/uL Hgb 12.4 (12.0-16.0) g/dL Hct 37.1 (36.0-48.0) % MCV 90.0 (81.0-99.0) fL MCH 30.1 (26.7-34.0) pg MCHC 33.4 (29.9-35.2) g/dL RDW 12.9 (11.0-15.0) % Plt Count 148 L (150-450) 10^3/uL MPV 13.0 (9.5-13.5) fL Neut % (Auto) 68.5 (43.0-75.0) % Lymph % (Auto) 21.2 (20.5-60.0) % Boyd % (Auto) 7.8 (1.7-12.0) % Eos % (Auto) 1.4 (0.9-7.0) % Baso % (Auto) 0.7 (0.2-2.0) % Neut # (Auto) 6.3 (1.4-6.5) 10^3/uL Lymph # (Auto) 2.0 (1.2-3.8) 10^3/uL Boyd # (Auto) 0.7 (0.3-0.8) 10^3/uL Eos # (Auto) 0.1 (0.0-0.7) 10^3/uL Baso # (Auto) 0.1 (0.0-0.1) 10^3/uL Abs Immat Gran (auto) 0.04 H (0.00-0.03) 10^3/uL Imm/Tot Granulo (auto) 0.4 (0.0-0.5) % Sodium 140 (136-145) mmol/L Potassium 3.2 L (3.5-5.1) mmol/L Chloride 103 (98-107) mmol/L Carbon Dioxide 29.2 (21.0-32.0) mmol/L Anion Gap 11.0 BUN 16.0 (7.0-18.0) mg/dL Creatinine 0.99 (0.55-1.02) mg/dL Est GFR ( Amer) >60 (>=60 mL/min/1.73m^2) Est GFR (Non-Af Amer) 53 L (>=60 mL/min/1.73m^2) BUN/Creatinine Ratio 16.2 Glucose 126 H (74-106) mg/dL Calcium 10.6 H (8.5-10.1) mg/dL Troponin I High Sens 12.3 (4.0-51.3) pg/mL Urine Color Lt. yellow (YELLOW) Urine Clarity Clear (CLEAR) Urine pH 7.5 (5.0-9.0) Ur Specific [place] 1.010 (1.005-1.025) Urine Protein Negative (NEG/TRACE) mg/dL Urine Glucose (UA) Negative (NEGATIVE) mg/dL Urine Ketones Negative (NEGATIVE) mg/dL Urine Occult Blood Negative (NEGATIVE) Urine Nitrite Negative (NEGATIVE) Urine Bilirubin Negative (NEGATIVE) Urine Urobilinogen 0.2 (0.2-1.0) EU/dL Ur Leukocyte Esterase Negative (NEGATIVE) Urine RBC 0-2 (0-2) #/HPF Urine WBC None seen (NONE SEEN) #/HPF Ur Squamous Epith Cells Few A (NONE/RARE) #/LPF Urine Crystals None seen (None Seen) #/HPF Urine Bacteria Trace A (NONE SEEN) #/HPF Urine Casts None seen (NONE SEEN) #/LPF Urine Mucus None seen (NONE SEEN) Ur Culture Indicated? No Imaging Data Chest x-ray: Radiologist's impression: ITS Impressions Chest X-Ray 06/01/25 10:15 IMPRESSION: No acute cardiopulmonary pathology. Impression dictated by: Frank Vargas M.D. 06/01/2025 11:13 AM Dictation Location: [place] Electronically authenticated by: [id number] Y Date: 06/01/2025 11:[address] 06/01/25 10:15 IMPRESSION: No acute intracranial. Chronic age-related neurodegenerative changes are noted as above. Impression dictated by: Frank Vargas M.D. 06/01/2025 11:11 AM Dictation Location: [place] [facility] Electronically authenticated by: [id number] Y Date: 06/01/2025 11:11 ECG Data Attestation: I personally reviewed and interpreted this ECG as follows: (EKG on my interpretation shows sinus rhythm with a rate of 64 and no acute change. Right bundle branch block present.) Discharge Plan Discharge Chief Complaint: Dizziness Clinical Impression: Dizziness Patient Disposition: Home, Self-Care Time of Disposition Decision: 14:07 Condition: Good Mode of Transportation: Private Vehicle Prescriptions / Home Meds: New meclizine 25 mg tablet 25 mg PO TID PRN (Reason: dizziness) Qty: 20 0RF No Action atenolol 50 mg tablet 50 mg PO DAILY losartan 100 mg tablet 100 mg PO DAILY simvastatin 10 mg tablet 20 mg PO DAILY aspirin [Adult Aspirin Regimen] 81 mg tablet,delayed release (DR/EC) 81 mg PO DAILY yvjqntjukehs-wclmkrvq-wqerqi Tablet 1 tab PO DAILY glucosamine HCl PO DAILY krill oil PO DAILY Print Language: Kinyarwanda Instructions: Dizziness (ED) Referrals: MARLEEN SIEGEL [Primary Care Provider, Family Practice] - 1 week
[2025-06-01 10:25] LABS: Hematocrit 37.1 % (36.0-48.0); Hemoglobin 12.4 g/dL (12.0-16.0); Immature Granulocytes Abs Auto 0.04 10^3/uL (0.00-0.03); Immature Granulocytes Pct Auto 0.4 % (0.0-0.5); Lymphocytes Absolute Auto 2.0 10^3/uL (1.2-3.8); Mean Corpuscular HGB Conc 33.4 g/dL (29.9-35.2); Mean Corpuscular Hemoglobin 30.1 pg (26.7-34.0); Mean Corpuscular Volume 90.0 fL (81.0-99.0); Platelet Count 148 10^3/uL (150-450); Red Blood Count 4.12 10^6/uL (4.20-5.40); White Blood Count 9.2 10^3/uL (4.0-11.0)
[2025-06-01 10:42] LABS: Anion Gap 11.0; Blood Urea Nitrogen 16.0 mg/dL (7.0-18.0); Calcium 10.6 mg/dL (8.5-10.1); Carbon Dioxide 29.2 mmol/L (21.0-32.0); Chloride 103 mmol/L (98-107); Estimated GFR (African America >60 (>=60 mL/min/1.73m^2); Estimated GFR (Non-African Ame 53 (>=60 mL/min/1.73m^2); Glucose 126 mg/dL (74-106); Potassium 3.2 mmol/L (3.5-5.1); Sodium 140 mmol/L (136-145)
[2025-06-01] MEDS: MECLIZINE HCL 12.5 MG TABLET 25 MG PO (11:02)
[2025-06-01] MEDS: HYDRALAZINE HCL 20 MG/ML VIAL 10 MG IVP (11:23)
--- OUTSIDE RECORDS SUMMARY | 2025-06-01 12:07 | XMS_ITS | Clinical Summary ---
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
--- OUTSIDE RECORDS SUMMARY | 2025-06-01 12:07 | XMS_ITS | Clinical Summary ---
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 0 10/22/2010 Active Ethin Estradiol-Noreth ind Alejo (FEMHRT 09/11) 1-5 mg-mcg ORAL Tab 0 10/22/2010 Active Calcium-Cholecal ciferol, D3, (CALCIUM 600 + D,3,) 600-200 mg-unit ORAL Cap 0 10/22/2010 Ac tive aspirin, enteric coated (ECOTRIN LOW STRENGTH) 81 mg ORAL EC tablet Take one (1) tablet daily. 0 10/22/2010 Active multivitamin ORAL tablet Take one(1) tablet daily. 0 10/22/2010 Active Enders-3 Fatty Acids-Vitamin E (FISH OIL) 1,000 mg ORAL Cap 0 10/22/2010 Active Glucosamine-Fran droit-Vit C-Mn (GLUCOSAMINE 1500 COMPLEX) 500-400 mg ORAL Cap 0 10/22/2010 Active Cholecalciferol, Vitamin D3, (VITAMIN D) 1,000 unit ORAL Tab 0 10/22/2010 Active Ascorbic Acid (VITAMIN C) 1,000 mg ORAL tablet Take one(1) tablet daily. 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 Social History Tobacco Use Types Packs/Day Years Used Date Smoking Tobacco: Never Alcohol Use Standard Drinks/Week Comments No 0 (1 standard drink = 0.6 oz pur e alcohol) Comments No Sex and Gender Information Value Date Recorded Sex Assigned at Not on file Legal Sex Female 10:20 AM EST Gender Identity Not on file Sexual Orientation Not on file Last Filed Vital Signs Vital Sign Reading Time Taken Comments Blood Pressure 137/37 10/06/2011 2:10 PM EST Pulse 63 10/06/2011 2:10 PM EST Temperature 36.3 C (97.3 F) 10/06/2011 1:20 PM EST Respiratory Rate 16 10/06/2011 2:10 PM EST Oxygen Saturation 99% 10/06/2011 2:10 PM EST Inhaled Oxygen Concentration - - Weight 77.1 kg (170 lb) 09/29/2011 12:23 PM EST Height 157.5 cm (5' 2 ) 09/29/2011 12:23 PM EST Body Mass Index 31.09 09/29/2011 12:23 PM EST Plan of Treatment Health Maintenance Due Date Last Done Comments Anxiety Screening 1958 Depression Screening 1958 DTaP,Tdap,Td Vaccine (1 - Tdap) 1957 Diabetes Screening 1983 Pneumococcal Vaccine: 50+ (1 of 1 - PCV) 1988 Shingrix Vaccine (1 of 2) 1988 Bone Density Screening 2003 RSV Vaccine (1 - 1-dose 75+ series) 2013 Advance Directive Discussion 09/07/2024 Influenza Vaccine (#1) 2025 Medical Devices Implanted Type Area Rodbuster Device Identifier Shelf Expiration Date Model / Serial / Lot Lens Iol +16.5 [employer]on Acrs[employer] Iq - [id number] Implanted:Qty : 1 on 12/13/2010 at [facility] Intraocular Lens Right: Eye - Lens [employer] 04/06/2015 SN60WF 16.5 / [id number] / Lens Iol +16 Shavon Acrsf Iq 13 - [id number] Implanted:Qty : 1 on 10/06/2011 at [facility] Intraocular Lens Left: Eye - Lens [employer] 02/05/2016 SN60WF 16.0 / [id number] / Insurance MEDICARE [place] [employer] O OOS Advance Directives Documents on File Type Date 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
[2025-06-01 13:06] LABS: Glucose Urine UA NEGATIVE (NEGATIVE)
[2025-06-01 13:16] LABS: Cast Seen? NONE SEEN #/LPF (NONE SEEN); Crystals Seen? None Seen #/HPF (None Seen); Urine Culture Indicated NO
== END 2025-06-01 14:23 | disposition home or self-care (01) ==
PROVIDERS: Emergency Provider Emergency Medicine; PCP Family Medicine
DX: R42 Dizziness and giddiness (principal)
CPT/HCPCS: 36415; 70450; 71045; 80048; 81001; 84484; 85025; 93005; 96374; 99285; J0360